=== PATIENT | male | born 1950 | race Caucasian/White ===

== ENCOUNTER 2023-07-08 06:53 | Outpatient (CLI) | payer MEDICARE, BC, SELFPAY | END 2023-07-08 06:54 | disposition home or self-care (01) | LOC: AMB 07-09 21:09 | PROVIDERS: PCP Family Medicine; Visit Provider Family Medicine | DX: R55 Syncope and collapse (principal) | CPT/HCPCS: A0425; A0427 ==

== ENCOUNTER 2023-07-08 07:18 | Emergency (ER) | payer MEDICARE, BC, SELFPAY ==
[2023-07-08] VITALS (7 sets, daily range): BP systolic 118–136; BP diastolic 54–63; PULSE 45–75; RESP 18; TEMP 36.4; O2SAT 98–100; BMI 29.4
--- NOTE | 2023-07-08 07:46 | ED_ITS ---
HPI - General Adult General Chief complaint: Dizziness/Vertigo <Mary Stevenson MD - Last Filed: 07/13/23 00:05> Stated complaint: Fall <Mary Stevenson MD - Last Filed: 07/13/23 00:05> Time Seen by Provider: 07/08/23 07:57 <Mary Stevenson MD - Last Filed: 07/13/23 00:05> Source: patient and EMS <Mary Stevenson MD - Last Filed: 07/13/23 00:05> Mode of arrival: EMS <Mary Stevenson MD - Last Filed: 07/13/23 00:05> History of Present Illness HPI narrative: 72-year-old male presents to the emergency department by EMS. He was working out at the [employer] this morning and had just completed a 20 minute exercise bike ride. He was starting to lift weights and suddenly felt generally weak and then felt lightheaded like he was going to pass out. He suddenly then did pass out, hitting his head on the wall he was standing next to on the way down. He does not believe that he lost consciousness. A woman there saw him fall and raced over to him, advised him not to get up. There was no seizure- like activity. Fall was clearly witnessed. There was no postictal or confusion following it. He notes no neurological changes. There was no vertigo type symptoms, no vision changes, no numbness or tingling. He had no speech difficulties. EMS was called. They noted hypotension in the 80s systolic on e scene. They brought him to the emergency department. He has a history of hypertension and an irregular heartbeat though he cannot remember if he was diagnosed with an arrhythmia or another type of rhythm problem. He states that he has had a heart rhythm problem for about a year and this was investigated by his enterprise manager out in [place]. From our discussions, it sounds like he had an echo and a Holter placed. He does not recall the results of those but was told that they were okay. He states that he was put on some kind of a medication but does not know specifically which 1. He reports that he is no longer taking that particular medication. He continues to take antihypertensives and his statin. He does not believe he had a stress test at that time. He did take his typical blood pressure medications prior to working out today as he usually does. Blood pressure was 120 is a this morning when he took his blood pressure at home prior to the workout. He did not have any chest pain, there was no shortness of breath. He has not noted an increase in irregular heart rate. No recent dizziness prior to this morning. No history of stents or coronary artery disease. He does not smoke. No history of DVT or PE. Past medical history notable for hypertension and hyperlipidemia and an irregular heartbeat of uncertain etiology. He is a nonsmoker, michelle in [place]. Medications and allergies reported as accurate. Lisinopril, statin, amlodipine, 3 prostate medications ROS notable for the dizziness and cardiac type report as above. Otherwise denies times 12 systems. <Mary Stevenson MD - Last Filed: 07/13/23 00:05> Related Data Allergies/adverse reactions: Allergies Allergy/AdvReac Type Severity Reaction Status Date / Time No Known Drug Allergies Allergy Verified 07/08/23 09:18 <Mary Stevenson MD - Last Filed: 07/13/23 00:05> [facility] Social History: Social History Non-prescribed substance use: denies use <Mary Stevenson MD - Last Filed: 07/13/23 00:05> Exam Const: Vital Signs, click to edit/add: Vital Signs - 24 hr 07/08/23 07:24 Temperature 97.5 F L Pulse Rate [Pulse Oximeter] 66 Respiratory Rate 18 Blood Pressure [Ri ght Upper Arm] 118/60 Pulse Oximetry 99 Oxygen Delivery Me thod Room Air <Mary Stevenson MD - Last Filed: 07/13/23 00:05> Vital Signs, click to edit/add: Vital Signs - 24 hr 07/08/23 07:24 Temperature 97.5 F L Pulse Rate [Pulse Oximeter] 66 Respiratory Rate 18 Blood Pressure [Ri ght Upper Arm] 118/60 Pulse Oximetry 99 Oxygen Delivery Me thod Room Air <Aftab Roman MD - Last Filed: 07/13/23 01:59> Documenting provider has reviewed patient's vital signs: yes <MD Lisa Gonzales Last Filed: 07/13/23 00:05> Common normals: no apparent distress and alert <MD Lisa Gonzales Last Filed: 07/13/23 00:05> General appearance: cooperative, comfortable and well kempt <MD Lisa Gonzales Last Filed: 07/13/23 00:05> Orientation/consciousness: Yes awake <MD Lisa Gonzales Last Filed: 07/13/23 00:05> Other: Fair historian. Cannot remember many of the details regarding his cardiac workup. <MD Lisa Gonzales Last Filed: 07/13/23 00:05> HENMT: Common normals: normocephalic and head/scalp atraumatic <MD Lisa Gonzales Last Filed: 07/13/23 00:05> Head and scalp: normocephalic and atraumatic <MD Lisa Gonzales Last Filed: 07/13/23 00:05> Face and sinus: normal facial exam <MD Lisa Gonzales Last Filed: 07/13/23 00:05> Mouth: oral and palatal mucosa normal <MD Lisa Gonzales Last Filed: 07/13/23 00:05> Throat: posterior oropharynx normal <MD Lisa Gonzales Last Filed: 07/13/23 00:05> Eye: Common normals: PERRL, EOMs intact bilaterally and conjunctivae normal <MD Lisa Gonzales Last Filed: 07/13/23 00:05> General eye: normal appearance of both eyes <MD Lisa Gonzales Last Filed: 07/13/23 00:05> Conjunctiva: conjunctiva(e) normal <MD Lisa Gonzales Last Filed: 07/13/23 00:05> Pupil: PERRL <MD Lisa Gonzales Last Filed: 07/13/23 00:05> Neck & C-Spine: Common normals: full ROM and no lymphadenopathy <MD Lisa Gonzales Last Filed: 07/13/23 00:05> Resp: Common normals: normal respiratory effort, no use of accessory muscles and clear to auscultation bilaterally <MD Lisa Gonzales Last Filed: 07/13/23 00:05> Effort & inspection: able to speak in complete sentences <MD Lisa Gonzales Last Filed: 07/13/23 00:05> Auscultation: clear to auscultation bilaterally <MD Lisa Gonzales Last Filed: 07/13/23 00:05> Cardio: Other: 2/6 systolic ejection murmur. Irregular . I listen and watch on the rhythm strip and it does look like frequent PVCs. Positive S1 and S2 with no gallops. Normal peripheral pulses. <MD Lisa Gonzales Last Filed: 07/13/23 00:05> GI: Common normals: Normal to inspection, nondistended, normoactive bowel sounds present, soft to palpation, non-tender, no hepatosplenomegaly and no masses <MD Lisa Gonzales Last Filed: 07/13/23 00:05> Palpation: soft and no hepatosplenomegaly <MD Lisa Gonzales Last Filed: 07/13/23 00:05> Extremity: Common normals: normal to inspection, full ROM, normal capillary refill and no pedal edema <MD Lisa Gonzales Last Filed: 07/13/23 00:05> Neuro: [place] Coma Scale: document GCS findings [place] coma scale eye opening: Spontaneous (4) [place] coma scale verbal response: Orientated (5) [place] coma scale motor response: Obey commands (6) [place] coma scale total s core: 15 <MD Lisa Gonzales Last Filed: 07/13/23 00:05> [place] Coma Scale: document GCS findings [place] coma scale total score: 15 <Aftab Roman MD - Last Filed: 07/13/23 01:59> Common normals: moves all extremities <MD Lisa Gonzales Last Filed: 07/13/23 00:05> Sensorium/orientation: awake and alert <MD Lisa Gonzales Last Filed: 07/13/23 00:05> Speech: speech normal <Mary Stevenson MD - Last Filed: 07/13/23 00:05> Motor exam: strength 5/5 throughout, no tremor noted, muscle tone normal throughout and no movement abnormalities noted <Mary Stevenson MD - Last Filed: 07/13/23 00:05> Psych: Common normals: thought process normal <Mary Stevenson MD - Last Filed: 07/13/23 00:05> Appearance: well kempt <Mary Stevenson MD - Last Filed: 07/13/23 00:05> Thought process: normal thought process <Mary Stevenson MD - Last Filed: 07/13/23 00:05> Insight: insight good <Mary Stevenson MD - Last Filed: 07/13/23 00:05> Judgement: judgment good <Mary Stevenson MD - Last Filed: 07/13/23 00:05> Skin: Common normals: no rashes or lesions noted <Mary Stevenson MD - Last Filed: 07/13/23 00:05> General skin exam: no rashes or lesions noted <Mary Stevenson MD - Last Filed: 07/13/23 00:05> Course Course ED Course: Hypotension noted by EMS. Suspect cardiogenic type syncope. Questioning arrhythmia, acute coronary syndrome, hypertension from his medications, sepsis, dehydration, or other etiology. Recommend basic cardiac labs, EKG, osteopathic physician, chest x-ray. No signs of significant head injury from the fall, do not suspect stroke or neurogenic cause. I will withhold head CT at this time. Will bolus 500 mL of normal saline while we await results. Will hand care over to my in coming day shift partner. <Mary Stevenson MD - Last Filed: 07/13/23 00:05> Reevaluation(s) Reevaluation #1: Care was handed over to incoming day shift partner. Remainder of labs have now been reviewed. Agree with management plan set forth by day shift partner. No abnormalities on labs that were ordered prior to my end of shift. See discharge plan. <Mary Stevenson MD - Last Filed: 07/13/23 00:05> Vital Signs Vital signs: Initial Vital Signs Temperature 97.5 F L 07/08/23 07:24 Temperature Source Temporal Artery Scan 07/08/23 07:24 Pulse Rate 66 07/08/23 07:24 Respiratory Rate 18 07/08/23 07:24 Blood Pressure 118/60 07/08/23 07:24 Blood Pressure Mean 79 07/08/23 07:24 Blood Pressure Position Sitting 07/08/23 07:24 Pulse Oximetry 99 07/08/23 07:24 Oxygen Delivery Method Room Air 07/08/23 07:24 Vital Signs Temperature 97.5 F L 07/08/23 07:24 Pulse Rate 66 07/08/23 07:24 Respiratory Rate 18 07/08/23 07:24 Blood Pressure 118/60 07/08/23 07:24 Pulse Oximetry 99 07/08/23 07:24 Oxygen Delivery Method Room Air 07/08/23 07:24 Temperature 97.5 F L 07/08/23 07:24 Pulse Rate 53 L 07/08/23 09:30 Respiratory Rate 18 07/08/23 07:24 Blood Pressure 136/63 07/08/23 09:04 Pulse Oximetry 99 07/08/23 09:30 Oxygen Delivery Method Room Air 07/08/23 07:24 <Mary Stevenson MD - Last Filed: 07/13/23 00:05> Initial Vital Signs Temperature 97.5 F L 07/08/23 07:24 Temperature Source Temporal Artery Scan 07/08/23 07:24 Pulse Rate 66 07/08/23 07:24 Respiratory Rate 18 07/08/23 07:24 Blood Pressure 118/60 07/08/23 07:24 Blood Pressure Mean 79 07/08/23 07:24 Blood Pressure Position Sitting 07/08/23 07:24 Pulse Oximetry 99 07/08/23 07:24 Oxygen Delivery Method Room Air 07/08/23 07:24 Vital Signs Temperature 97.5 F L 07/08/23 07:24 Pulse Rate 66 07/08/23 07:24 Respiratory Rate 18 07/08/23 07:24 Blood Pressure 118/60 07/08/23 07:24 Pulse Oximetry 99 07/08/23 07:24 Oxygen Delivery Method Room Air 07/08/23 07:24 Temperature 97.5 F L 07/08/23 07:24 Pulse Rate 53 L 07/08/23 09:30 Respiratory Rate 18 07/08/23 07:24 Blood Pressure 136/63 07/08/23 09:04 Pulse Oximetry 99 07/08/23 09:30 Oxygen Delivery Method Room Air 07/08/23 07:24 <Aftab Roman MD - Last Filed: 07/13/23 01:59> Medical Decision Making MDM Narrative Medical decision making narrative: Abel -- Received Mr. Allred in handoff at change of shift. Suspected episode of vasovagal near syncope pending repeat troponin; this was flat/0. EKG reviewed. He appeared quite well on re-evaluation with good energy. Continued to demonstrate bigeminy and occasional PVC, unifocal. See patient discharge plan <Aftab Roman MD - Last Filed: 07/13/23 01:59> Lab Data Lab results reviewed: Yes I reviewed the patient's lab results <Mary Stevenson MD - Last Filed: 07/13/23 00:05> Labs: Lab Results 07/08/23 07/08/23 07/08/23 Range/Units 07:29 07:43 09:00 WBC 5.02 (4.50-11.00) K/uL RBC 4.46 (4.30-5.90) m/uL Hgb 13.3 L (13.5-17.5) gm/dL Hct 40.8 (37.0-53.0) % MCV 92 (80-100) fL MCH 30 (26-34) pg MCHC 33 (32-36) gm/dL RDW Coeff of Nori 13.2 (11.5-15.5) % Plt Count 228 (140-440) K/uL Neut % (Auto) 66.5 (42.0-72.0) % Lymph % (Auto) 25.9 (20-44) % [place] % (Auto) 6.6 (0.0-11.0) % Eos % (Auto) 0.4 (0.0-7.0) % Baso % (Auto) 0.4 (0.0-3.0) % Neut # (Auto) 3.34 (1.7-7.0) K/uL Lymph # (Auto) 1.30 (0.90-2.90) K/uL [place] # (Auto) 0.30 (0.00-0.90) K/UL Eos # (Auto) 0.02 (0.00-0.50) K/uL Baso # (Auto) 0.02 (0.00-0.30) K/uL Abs Immat Gran (auto) 0.01 (0.00-0.30) K/uL Imm/Tot Granulo (auto) 0.2 % Sodium 138 (135-149) mmol/L Potassium 4.3 (3.6-5.1) mmol/L Chloride 106 (96-114) mmol/L Carbon Dioxide 21 (20-32) mmol/L Anion Gap 11 (7-15) mEq/L BUN 25 (7-30) mg/dL Creatinine 1.0 (0.5-1.5) mg/dL Estimated Creat Clear 55.09 Estimated GFR 79 ml/min Glucose 100 (60-115) mg/dL Calcium 11.2 H (8.4-10.6) mg/dL Troponin I < 0.01 L (0.01-0.04) ng/mL C-Reactive Protein < 0.5 L (0.5-1.0) mg/dL NT-Pro-B Natriuret Pep 90 pg/mL Urine Color Yellow (Yellow) Urine Appearance Clear (Clear) Urine pH 6.0 (5.0-8.5) Ur Specific [place] 1.020 (1.000-1.030) Urine Protein Negative (Negative) Urine Glucose (UA) Negative (Negative) Urine Ketones Negative (Negative) Urine Blood Negative (Negative) Urine Nitrite Negative (Negative) Urine Bilirubin Negative (Negative) Urine Urobilinogen 0.2 (0.2-1.0) Ur Leukocyte Esterase Negative (Negative) POC Troponin I 0.00 L (0.01-0.04) ng/ml 07/08/23 Range/Units 09:14 WBC (4.50-11.00) K/uL RBC (4.30-5.90) m/uL Hgb (13.5-17.5) gm/dL Hct (37.0-53.0) % MCV (80-100) fL MCH (26-34) pg MCHC (32-36) gm/dL RDW Coeff of Nori (11.5-15.5) % Plt Count (140-440) K/uL Neut % (Auto) (42.0-72.0) % Lymph % (Auto) (20-44) % [place] % (Auto) (0.0-11.0) % Eos % (Auto) (0.0-7.0) % Baso % (Auto) (0.0-3.0) % Neut # (Auto) (1.7-7.0) K/uL Lymph # (Auto) (0.90-2.90) K/uL [place] # (Auto) (0.00-0.90) K/UL Eos # (Auto) (0.00-0.50) K/uL Baso # (Auto) (0.00-0.30) K/uL Abs Immat Gran (auto) (0.00-0.30) K/uL Imm/Tot Granulo (auto) % Sodium (135-149) mmol/L Potassium (3.6-5.1) mmol/L Chloride (96-114) mmol/L Carbon Dioxide (20-32) mmol/L Anion Gap (7-15) mEq/L BUN (7-30) mg/dL Creatinine (0.5-1.5) mg/dL Estimated Creat Clear Estimated GFR ml/min Glucose (60-115) mg/dL Calcium (8.4-10.6) mg/dL Troponin I (0.01-0.04) ng/mL C-Reactive Protein (0.5-1.0) mg/dL NT-Pro-B Natriuret Pep pg/mL Urine Color (Yellow) Urine Appearance (Clear) Urine pH (5.0-8.5) Ur Specific [place] (1.000-1.030) Urine Protein (Negative) Urine Glucose (UA) (Negative) Urine Ketones (Negative) Urine Blood (Negative) Urine Nitrite (Negative) Urine Bilirubin (Negative) Urine Urobilinogen (0.2-1.0) Ur Leukocyte Esterase (Negative) POC Troponin I 0.00 L (0.01-0.04) ng/ml <Mary Stevenson MD - Last Filed: 07/13/23 00:05> Lab Results 07/08/23 07/08/23 07/08/23 Range/Units 07:29 07:43 09:00 WBC 5.02 (4.50-11.00) K/uL RBC 4.46 (4.30-5.90) m/uL Hgb 13.3 L (13.5-17.5) gm/dL Hct 40.8 (37.0-53.0) % MCV 92 (80-100) fL MCH 30 (26-34) pg MCHC 33 (32-36) gm/dL RDW Coeff of Nori 13.2 (11.5-15.5) % Plt Count 228 (140-440) K/uL Neut % (Auto) 66.5 (42.0-72.0) % Lymph % (Auto) 25.9 (20-44) % [place] % (Auto) 6.6 (0.0-11.0) % Eos % (Auto) 0.4 (0.0-7.0) % Baso % (Auto) 0.4 (0.0-3.0) % Neut # (Auto) 3.34 (1.7-7.0) K/uL Lymph # (Auto) 1.30 (0.90-2.90) K/uL [place] # (Auto) 0.30 (0.00-0.90) K/UL Eos # (Auto) 0.02 (0.00-0.50) K/uL Baso # (Auto) 0.02 (0.00-0.30) K/uL Abs Immat Gran (auto) 0.01 (0.00-0.30) K/uL Imm/Tot Granulo (auto) 0.2 % Sodium 138 (135-149) mmol/L Potassium 4.3 (3.6-5.1) mmol/L Chloride 106 (96-114) mmol/L Carbon Dioxide 21 (20-32) mmol/L Anion Gap 11 (7-15) mEq/L BUN 25 (7-30) mg/dL Creatinine 1.0 (0.5-1.5) mg/dL Estimated Creat Clear 55.09 Estimated GFR 79 ml/min Glucose 100 (60-115) mg/dL Calcium 11.2 H (8.4-10.6) mg/dL Troponin I < 0.01 L (0.01-0.04) ng/mL C-Reactive Protein < 0.5 L (0.5-1.0) mg/dL NT-Pro-B Natriuret Pep 90 pg/mL Urine Color Yellow (Yellow) Urine Appearance Clear (Clear) Urine pH 6.0 (5.0-8.5) Ur Specific [place] 1.020 (1.000-1.030) Urine Protein Negative (Negative) Urine Glucose (UA) Negative (Negative) Urine Ketones Negative (Negative) Urine Blood Negative (Negative) Urine Nitrite Negative (Negative) Urine Bilirubin Negative (Negative) Urine Urobilinogen 0.2 (0.2-1.0) Ur Leukocyte Esterase Negative (Negative) POC Troponin I 0.00 L (0.01-0.04) ng/ml 07/08/23 Range/Units 09:14 WBC (4.50-11.00) K/uL RBC (4.30-5.90) m/uL Hgb (13.5-17.5) gm/dL Hct (37.0-53.0) % MCV (80-100) fL MCH (26-34) pg MCHC (32-36) gm/dL RDW Coeff of Nori (11.5-15.5) % Plt Count (140-440) K/uL Neut % (Auto) (42.0-72.0) % Lymph % (Auto) (20-44) % [place] % (Auto) (0.0-11.0) % Eos % (Auto) (0.0-7.0) % Baso % (Auto) (0.0-3.0) % Neut # (Auto) (1.7-7.0) K/uL Lymph # (Auto) (0.90-2.90) K/uL [place] # (Auto) (0.00-0.90) K/UL Eos # (Auto) (0.00-0.50) K/uL Baso # (Auto) (0.00-0.30) K/uL Abs Immat Gran (auto) (0.00-0.30) K/uL Imm/Tot Granulo (auto) % Sodium (135-149) mmol/L Potassium (3.6-5.1) mmol/L Chloride (96-114) mmol/L Carbon Dioxide (20-32) mmol/L Anion Gap (7-15) mEq/L BUN (7-30) mg/dL Creatinine (0.5-1.5) mg/dL Estimated Creat Clear Estimated GFR ml/min Glucose (60-115) mg/dL Calcium (8.4-10.6) mg/dL Troponin I (0.01-0.04) ng/mL C-Reactive Protein (0.5-1.0) mg/dL NT-Pro-B Natriuret Pep pg/mL Urine Color (Yellow) Urine Appearance (Clear) Urine pH (5.0-8.5) Ur Specific [place] (1.000-1.030) Urine Protein (Negative) Urine Glucose (UA) (Negative) Urine Ketones (Negative) Urine Blood (Negative) Urine Nitrite (Negative) Urine Bilirubin (Negative) Urine Urobilinogen (0.2-1.0) Ur Leukocyte Esterase (Negative) POC Troponin I 0.00 L (0.01-0.04) ng/ml <Aftab Roman MD - Last Filed: 07/13/23 01:59> ECG Data Attestation: I personally reviewed and interpreted this ECG as follows: <Mary Stevenson MD - Last Filed: 07/13/23 00:05> Prior ECG tracings: not available for review <Mary Stevenson MD - Last Filed: 07/13/23 00:05> Interpretation: Overall sinus rhythm with irregular pattern. No obvious ischemia. No significant ST or T-wave abnormalities. Normal axis. <Mary Stevenson MD - Last Filed: 07/13/23 00:05> Discharge Plan Discharge Clinical Impression: Syncope, vasovagal, Bigeminy, Unifocal PVCs <Mary Stevenson MD - Last Filed: 07/13/23 00:05> Patient Disposition: Home w/ Parent or Adult <Mary Stevenson MD - Last Filed: 07/13/23 00:05> Condition: Improved <Mary Stevenson MD - Last Filed: 07/13/23 00:05> Additional Instructions: Be sure to stay well-hydrated. Would consider taking your morning pills after your workout. Might want to check in again with your primary care provider or with Cardiology regarding events of today. Return for persistent, increased lightheadedness, shortness of breath, chest pain. <Mary Stevenson MD - Last Filed: 07/13/23 00:05> Follow Up/Referrals: Chalo Kidd MD [Primary Care Provider] - <Mary Stevenson MD - Last Filed: 07/13/23 00:05> Stand Alone Forms: [facility] <Mary Stevenson MD - Last Filed: 07/13/23 00:05>
--- NOTE | 2023-07-08 07:49 | CRLHL7_ITS ---
For Patients: As a result of the Cures Act, medical imaging exams and procedure reports are released immediately into your electronic medical record. You may view this report before your referring provider. If you have questions, please contact your health care provider. INDICATION: Syncope. TECHNIQUE: Chest 2 views. COMPARISON: None. FINDINGS: The patient is rotated rightward. Heart and mediastinum: Within normal limits for age. Lungs and pleural spaces: Lungs are clear. No sign of infiltrate or mass. No sign of pleural effusion. No pneumothorax. Bones and soft tissues: No significant findings. IMPRESSION: No acute findings. Dictated by Ming Oshea MD @ 07/08/2023 8:18:07 AM (Electronically Signed)
[2023-07-08 07:50] LABS: Basophils Absolute Auto 0.02 K/uL (0.00-0.30); Basophils Percent Auto 0.4 % (0.0-3.0); Eosinophils Absolute Auto 0.02 K/uL (0.00-0.50); Eosinophils Percent Auto 0.4 % (0.0-7.0); Hematocrit 40.8 % (37.0-53.0); Hemoglobin* 13.3 gm/dL (13.5-17.5); Immature Granulocytes Abs Auto 0.01 K/uL (0.00-0.30); Immature Granulocytes Pct Auto 0.2 %; Lymphocytes Percent Auto 25.9 % (20-44); Mean Corpuscular HGB Conc 33 gm/dL (32-36); Mean Corpuscular Hemoglobin 30 pg (26-34); Mean Corpuscular Volume 92 fL (80-100); Monocytes Percent Auto 6.6 % (0.0-11.0); Neutrophils Absolute Auto 3.34 K/uL (1.7-7.0); Neutrophils Percent Auto 66.5 % (42.0-72.0); Platelet Count* 228 K/uL (140-440); RDW Coefficient of Variation % 13.2 % (11.5-15.5); Red Blood Count 4.46 m/uL (4.30-5.90); White Blood Count* 5.02 K/uL (4.50-11.00)
[2023-07-08 07:58] LABS: Slide Review Reflex No
[2023-07-08] MEDS: 0.9 % SODIUM CHLORIDE 500 ML 500 ML IV (07:58)
[2023-07-08 08:02] LABS: Chloride* 106 mmol/L (96-114)
[2023-07-08 08:03] LABS: Potassium* 4.3 mmol/L (3.6-5.1); Sodium* 138 mmol/L (135-149)
[2023-07-08 08:05] LABS: Est. Creatinine Clearance* 55.09; Estimated Glomerular Filt Rate 79 ml/min
[2023-07-08 08:06] LABS: Anion Gap 11 mEq/L (7-15); Blood Urea Nitrogen* 25 mg/dL (7-30); Calcium* 11.2 mg/dL (8.4-10.6); Carbon Dioxide* 21 mmol/L (20-32); Glucose* 100 mg/dL (60-115)
[2023-07-08 08:14] LABS: C Reactive Protein* < 0.5 mg/dL (0.5-1.0)
[2023-07-08 08:18] LABS: NT Pro B Type NatriureticPept* 90 pg/mL; Troponin I* < 0.01 ng/mL (0.01-0.04)
[2023-07-08 09:07] LABS: Appearance Urine Clear (Clear); Bilirubin Urine Negative (Negative); Blood Urine Negative (Negative); Color Urine Yellow (Yellow); Glucose Urine Negative (Negative); Ketones Urine Negative (Negative); Leukocyte Esterase Urine Negative (Negative); Nitrite Urine Negative (Negative); Protein Urine Negative (Negative); Urobilinogen Urine 0.2 (0.2-1.0)
== END 2023-07-08 10:50 | disposition home or self-care (01) ==
PROVIDERS: Family Medicine; Emergency Provider Family Medicine; PCP Family Medicine
DX: R55 Syncope and collapse (principal); R00.8 Other abnormalities of heart beat; I49.3 Ventricular premature depolarization
CPT/HCPCS: 36415; 71046; 80048; 81003; 83880; 84484; 85025; 86140; 93005; 96360; 99284; 99285; J7120

== ENCOUNTER 2024-05-15 05:17 | Emergency (ER) | payer MEDICARE, BC, SELFPAY ==
[2024-05-15 05:24] VITALS: BP 131/70; PULSE 76; RESP 16; TEMP 36.4; O2SAT 98; BMI 27.5
--- NOTE | 2024-05-15 05:51 | ED.GENADULT ---
HPI - General Adult General Chief complaint: Dizziness/Vertigo Stated complaint: lightheaded,dizzy Time Seen by Provider: 05/15/24 05:30 Source: patient Mode of arrival: ambulatory Limitations: no limitations History of Present Illness HPI narrative: 73-year-old male with prior history of hypertension presents the emergency department for evaluation of lightheadedness. Asymptomatic last night when he went to bed, awoke at 4:00 a.m. which is his typical wake time and went to go to the bathroom. He said that he felt lightheaded like he could faint. There was no vertigo or neurological change noted. No vision change or difficulty moving his extremities. He was worried that he would pass out so he sat down on the floor and noticed that his symptoms did improve quite a bit after about 5 minutes. He was unable to get up and walk into the kitchen where he still felt somewhat lightheaded. He had a cup of coffee and drink a big glass of water hoping that this would help. He says that he still felt just a little off therefore he presents to the emergency department. No chest pain, no shortness of breath, no feelings of arrhythmia. He had a syncopal episode about 1 year ago and was evaluated in the ED. It looks like I saw him then. Ultimately, his symptoms were thought to be secondary to dehydration. He did follow-up with cardiology as was recommended. It looks like he had a a Myoview stress test in July of 2023. This showed an EF of 73% with no ischemia, wall motion abnormalities or prior infarcts. I also reviewed that he last followed up with his straightening press operator 1 week ago. This note is reviewed. At that time, patient's lisinopril was increased from 10 mg once daily to 20 mg once daily. Patient states he has not picked up the increased dose and started it yet. Patient has been off of his Flomax for about 10 to 14 days following a urological procedure. He did just restart the medication last night and wonders if this could be contributing. No prior history of strokes or coronary artery disease, he is a nonsmoker. No recent illness, fevers. No respiratory changes, abdominal pain, dysuria, GI bleed or leg swelling. Other than the Flomax change, no other changes in medications or habits. Does report that he is still mildly symptomatic while laying down here in the ED. Past medical history notable for hypertension, BPH, urethral stricture and the prior syncope workup. Surgical history notable for total knee replacement. Nonsmoker. ROS notable for the generalized symptoms as described above only, otherwise denies times 12 systems. Related Data Home Medications ?Medication ?Instructions ?Recorded ?Confirmed amlodipine 5 mg PO DAILY 05/15/24 05/15/24 atorvastatin 40 mg PO HS 05/15/24 05/15/24 finasteride 5 mg PO DAILY 05/15/24 05/15/24 lisinopril 10 mg PO DAILY 05/15/24 05/15/24 tamsulosin 0.4 mg capsule (Flomax) 0.4 mg PO DAILY 05/15/24 05/15/24 Allergies Allergy/AdvReac Type Severity Reaction Status Date / Time No Known Drug Allergies Allergy Verified 05/15/24 05:26 [facility] Medical History BPH (benign prostatic hyperplasia) ?N40.0 - Benign prostatic hyperplasia without lower urinary tract symptoms (ICD-10) Syncope, vasovagal ?R55 - Syncope and collapse (ICD-10) Stricture of male urethra ?N35.919 - Unspecified urethral stricture, male, unspecified site (ICD-10) Adenomatous colon polyp ?D12.6 - Benign neoplasm of colon, unspecified (ICD-10) Seborrheic keratosis ?L82.1 - Other seborrheic keratosis (ICD-10) Hypercalcemia ?E83.52 - Hypercalcemia (ICD-10) Unifocal PVCs ?I49.3 - Ventricular premature depolarization (ICD-10) Bigeminy ?I49.8 - Other specified cardiac arrhythmias (ICD-10) Essential hypertension ?I10 - Essential (primary) hypertension (ICD-10) Surgical History History of total left knee replacement ?Z96.652 - Presence of left artificial knee joint (ICD-10) Social History Smoking Status: Never smoker How often do you have a drink containing alcohol: never AUDIT-C Alcohol total score: 0 Non-prescribed substance use: denies use Exam Const: Vital Signs, click to edit/add: Vital Signs - 24 hr 05/15/24 05:24 05/15/24 06:01 Temperature 97.6 F Pulse Rate [Pulse Oximeter] 76 Pulse Rate [orthos tatic lying] 75 Pulse Rate [orthos tatic sitting] 65 Pulse Rate [orthos tatic standing] 72 Respiratory Rate 16 Blood Pressure [Le ft Upper Arm] 131/70 Blood Pressure [or thostatic lying] 145/71 H Blood Pressure [or thostatic sitting] 142/75 H Blood Pressure [or thostatic standing ] 122/62 Pulse Oximetry 98 Oxygen Delivery Me thod Room Air Documenting provider has reviewed patient's vital signs: yes Common normals: no apparent distress, oriented x3 and alert General appearance: well kempt Other: Slightly masked facies appearance. Some mild memory lapse when recalling history, he states that this has been happening a little more often lately but is not unique to today. Appears well nourished and well hydrated. HENMT: Common normals: normocephalic and oropharynx normal Head and scalp: normocephalic Mouth: oral and palatal mucosa normal Throat: posterior oropharynx normal Eye: Common normals: PERRL and EOMs intact bilaterally Pupil: PERRL Other: Mild ocular ptosis Neck & C-Spine: Common normals: no lymphadenopathy General: normal visual inspection Chest: Common normals: inspection of chest normal Resp: Common normals: normal respiratory effort, no use of accessory muscles and clear to auscultation bilaterally Effort & inspection: able to speak in complete sentences Auscultation: clear to auscultation bilaterally Cardio: Common normals: regular rate, regular rhythm, S1 normal heart sound, S2 normal heart sound and no murmurs Rate: regular rate Rhythm: regular rhythm Heart sounds: S1 normal and S2 normal GI: Common normals: Normal to inspection, nondistended, normoactive bowel sounds present, soft to palpation, non-tender, no hepatosplenomegaly and no masses Palpation: soft and no hepatosplenomegaly Back & Pelvis: Common normals: thoracic and lumbar spine normal to inspection Extremity: Common normals: normal to inspection, normal capillary refill and no pedal edema Neuro: Common normals: oriented x3, CN's II-XII intact bilaterally, moves all extremities, no focal motor deficits and no sensory deficits noted Sensorium/orientation: alert Speech: speech normal Gait (neuro): normal gait Motor exam: strength 5/5 throughout and no pronator drift Psych: Common normals: thought process normal Appearance: well kempt Attitude: engaged Activity/motor behavior: appropriate eye contact Mood and affect: euthymic mood Thought process: normal thought process Memory/cognition: memory grossly intact Insight: insight good Judgement: judgment good Skin: Common normals: no rashes or lesions noted General skin exam: no rashes or lesions noted Course Course ED Course: 69 for a male with lightheadedness, may correlate with restart of her Flomax though he has been evaluated for similar symptoms of syncope in the ED in the past. Normal cardiac stress test 9 months ago. Initial vital signs appear stable. No neurological features to suggest stroke though cannot fully exclude. Initial exam is quite reassuring. Will begin with 1 L of normal saline, orthostatics, typical cardiac, electrolyte workup. Differential diagnosis including stroke, medication side effect, cardiac process, arrhythmia, acute coronary syndrome, dehydration, among many others. I am wondering if he is developing some autonomic instability with blood pressure. He does have some masked face ease which are curious as well. Await workup in findings from ED but may also benefit from a tilt-table test or other assessment for autonomic dysfunction at this is nonrevealing. Update: Orthostatic blood pressures reviewed and does meet criteria for orthostatic hypotension. Reevaluation(s) Time of Reevaluation #1: 08:14 Reevaluation #1: Patient feeling better after fluids and orthostatic blood pressures improved after fluids as well. Is drinking fluids here without complication and now has been able to urinate. Dizziness has improved. Repeat troponin is also again negative, this is reassuring. Discussed dehydration, do suspect some underlying autonomic dysfunction and amplification of symptoms with his current medications. I would like him to switch his Flomax to morning, specifically after breakfast and after he has consume some fluids. Especially in these very hot months, I would like for him to try to drink a little more fluid throughout the evenings. We discussed potentially referral for tilt-table testing and/or cardiology follow-up if his symptoms persist. Discussed that it does not really change the outcome it just gives more evidence to the etiology of his symptoms. He will consider this. He will continue monitoring his blood pressures closely and follow-up with his primary care provider if he has persistent symptoms. I would like for him to hold off on his increased dose of lisinopril for another week and monitor his blood pressures at home closely prior to increasing this. His blood pressure may have been a little higher in the office with the straightening press operator as he would have been off of his Flomax during that time. He verbalizes understanding and agreement of plan. Vital Signs Vital signs: Initial Vital Signs Temperature 97.6 F 05/15/24 05:24 Temperature Source Temporal Artery Scan 05/15/24 05:24 Pulse Rate 76 05/15/24 05:24 Respiratory Rate 16 05/15/24 05:24 Blood Pressure 131/70 05/15/24 05:24 Blood Pressure Mean 90 05/15/24 05:24 Blood Pressure Position Sitting 05/15/24 05:24 Pulse Oximetry 98 05/15/24 05:24 Oxygen Delivery Method Room Air 05/15/24 05:24 Vital Signs Temperature 97.6 F 05/15/24 05:24 Pulse Rate 76 05/15/24 05:24 Respiratory Rate 16 05/15/24 05:24 Blood Pressure 131/70 05/15/24 05:24 Pulse Oximetry 98 05/15/24 05:24 Oxygen Delivery Method Room Air 05/15/24 05:24 Temperature 97.6 F 05/15/24 05:24 Pulse Rate 75 05/15/24 06:01 Respiratory Rate 16 05/15/24 05:24 Blood Pressure 145/71 H 05/15/24 06:01 Pulse Oximetry 98 05/15/24 05:24 Oxygen Delivery Method Room Air 05/15/24 05:24 Medical Decision Making Lab Data Labs: Lab Results 05/15/24 05/15/24 05/15/24 Range/Units 05:46 05:48 06:23 WBC 5.14 (4.50-11.00) K/uL RBC 4.69 (4.30-5.90) m/uL Hgb 13.8 (13.5-17.5) gm/dL Hct 42.4 (37.0-53.0) % MCV 90 (80-100) fL MCH 29 (26-34) pg MCHC 33 (32-36) gm/dL RDW Coeff of Nori 13.0 (11.5-15.5) % Plt Count 204 (140-440) K/uL Neut % (Auto) 55.1 (42.0-72.0) % Lymph % (Auto) 34.2 (20-44) % [place] % (Auto) 9.3 (0.0-11.0) % Eos % (Auto) 0.6 (0.0-7.0) % Baso % (Auto) 0.6 (0.0-3.0) % Neut # (Auto) 2.83 (1.7-7.0) K/uL Lymph # (Auto) 1.76 (0.90-2.90) K/uL [place] # (Auto) 0.50 (0.00-0.90) K/UL Eos # (Auto) 0.03 (0.00-0.50) K/uL Baso # (Auto) 0.03 (0.00-0.30) K/uL Abs Immat Gran (auto) 0.01 (0.00-0.30) K/uL Imm/Tot Granulo (auto) 0.2 % Sodium 134 L (135-149) mmol/L Potassium 4.0 (3.6-5.1) mmol/L Chloride 106 (96-114) mmol/L Carbon Dioxide 19 L (20-32) mmol/L Anion Gap 9 (7-15) mEq/L BUN 20 (7-30) mg/dL Creatinine 0.9 (0.5-1.5) mg/dL Estimated Creat Clear 54.27 Estimated GFR 90 ml/min Glucose 114 (60-115) mg/dL Lactate 2.3 H (0.5-1.9) mmol/L Calcium 10.5 (8.4-10.6) mg/dL Total Bilirubin 1.2 (0.1-1.5) mg/dL AST 34 (12-35) U/L ALT 26 (4-50) U/L Alkaline Phosphatase 68 (40-150) U/L C-Reactive Protein < 0.5 L (0.5-1.0) mg/dL Total Protein 6.7 (6.0-8.3) g/dL Albumin 4.3 (3.3-5.0) g/dL TSH 3.900 (0.270-4.200) uIU/mL Urine Color (Yellow) Urine Appearance (Clear) Urine pH (5.0-8.5) Ur Specific [place] (1.000-1.030) Urine Protein (Negative) Urine Glucose (UA) (Negative) Urine Ketones (Negative) Urine Blood (Negative) Urine Nitrite (Negative) Urine Bilirubin (Negative) Urine Urobilinogen (0.2-1.0) Ur Leukocyte Esterase (Negative) SARS-CoV-2 (PCR) Negative SARS-CoV-2 (Negative) Influenza Type A (PCR) Negative PCR FLU A (Negative) Influenza Type B (PCR) Negative PCR FLU B (Negative) RSV (PCR) Negative PCR RSV (Negative) POC Troponin I 0.01 (0.01-0.04) ng/ml 05/15/24 05/15/24 Range/Units 07:40 08:02 WBC (4.50-11.00) K/uL RBC (4.30-5.90) m/uL Hgb (13.5-17.5) gm/dL Hct (37.0-53.0) % MCV (80-100) fL MCH (26-34) pg MCHC (32-36) gm/dL RDW Coeff of Nori (11.5-15.5) % Plt Count (140-440) K/uL Neut % (Auto) (42.0-72.0) % Lymph % (Auto) (20-44) % [place] % (Auto) (0.0-11.0) % Eos % (Auto) (0.0-7.0) % Baso % (Auto) (0.0-3.0) % Neut # (Auto) (1.7-7.0) K/uL Lymph # (Auto) (0.90-2.90) K/uL [place] # (Auto) (0.00-0.90) K/UL Eos # (Auto) (0.00-0.50) K/uL Baso # (Auto) (0.00-0.30) K/uL Abs Immat Gran (auto) (0.00-0.30) K/uL Imm/Tot Granulo (auto) % Sodium (135-149) mmol/L Potassium (3.6-5.1) mmol/L Chloride (96-114) mmol/L Carbon Dioxide (20-32) mmol/L Anion Gap (7-15) mEq/L BUN (7-30) mg/dL Creatinine (0.5-1.5) mg/dL Estimated Creat Clear Estimated GFR ml/min Glucose (60-115) mg/dL Lactate (0.5-1.9) mmol/L Calcium (8.4-10.6) mg/dL Total Bilirubin (0.1-1.5) mg/dL AST (12-35) U/L ALT (4-50) U/L Alkaline Phosphatase (40-150) U/L C-Reactive Protein (0.5-1.0) mg/dL Total Protein (6.0-8.3) g/dL Albumin (3.3-5.0) g/dL TSH (0.270-4.200) uIU/mL Urine Color Yellow (Yellow) Urine Appearance Clear (Clear) Urine pH 5.5 (5.0-8.5) Ur Specific [place] 1.015 (1.000-1.030) Urine Protein Negative (Negative) Urine Glucose (UA) Negative (Negative) Urine Ketones Negative (Negative) Urine Blood Negative (Negative) Urine Nitrite Negative (Negative) Urine Bilirubin Negative (Negative) Urine Urobilinogen 0.2 (0.2-1.0) Ur Leukocyte Esterase Negative (Negative) SARS-CoV-2 (PCR) (Negative) Influenza Type A (PCR) (Negative) Influenza Type B (PCR) (Negative) RSV (PCR) (Negative) POC Troponin I 0.00 L (0.01-0.04) ng/ml ECG Data Attestation: I personally reviewed and interpreted this ECG as follows: Prior ECG tracings: available for review (2022) Interpretation: Sinus rhythm as there are P-waves for every QRS but rate is a little irregular. Ranges in the high 70s. NE interval seems pretty preserved but there does seem to be irregularly length pauses at times between T and P waves. But ST segments look normal. [place] and interval look normal. No findings consistent with acute ischemia. Overall, looks unchanged from July 2023 Discharge Plan Discharge Clinical Impression: Postural dizziness with presyncope, Orthostatic hypotension, Dehydration Patient Disposition: Home, Self-Care Condition: Improved Instructions: Lightheadedness (ED), Tilt Table Test (DC) Additional Instructions: As we discussed, your dizziness was related to multiple factors. First, you were slightly dehydrated. I am glad that your symptoms are improving after the IV fluids. Second, I think that the nerves within your blood vessels are not as reactive as they were when you are younger, making you more prone to this type of dizziness when you get dehydrated or change positions. Third, your lisinopril and Flomax are 2 medications that will certainly amplify these symptoms in susceptible people. At this time, I think it is safe for you to continue your medications as are currently prescribed, but I would like to switch your Flomax to morning rather than bedtime. Would like for you to wait to start the increased dose of lisinopril for another week and monitor your blood pressure twice daily. If your blood pressures are still running over 135 systolic, you should take the increased dose of lisinopril. Your blood pressure may have been a little higher in the straightening press operator's office as I think you would have been off of your Flomax at the time of that visit. Try to take your Flomax after you have had some fluid and breakfast. Follow-up with your primary care provider if your blood pressures are still not at goal. As we discussed, there is specific testing that can look more closely at this, called a tilt-table test. Ultimately though, it does not really change management consultant or give us additional treatment options. For now, make sure you are drinking plenty of fluids throughout the day, especially on these hot days. If you start to feel dizzy or lightheaded, rest and drink lots of fluids like you did this morning and symptoms should improve within a couple of hours. Check your blood pressure and also your pulse and if these are within a reasonable range, you do not need to immediately come to the ED but if things do not improve after fluids and a couple of hours, we would certainly want for you to come in. If you continue to have these symptoms, I would recommend you follow-up with her straightening press operator to discuss medication changes or additional testing such as a Holter monitor, tilt-table test or others. Activity Level: No Restrictions Discharge Diet: Regular Prescriptions: No Action tamsulosin [Flomax] 0.4 mg capsule 0.4 mg PO DAILY lisinopril 10 mg PO DAILY atorvastatin 40 mg PO HS finasteride 5 mg PO DAILY amlodipine 5 mg PO DAILY Follow Up/Referrals: Chalo Kidd MD [Primary Care Provider] - Stand Alone Forms: [employer] Info Instructions
--- OUTSIDE RECORDS SUMMARY | 2024-05-15 05:54 | XMS_ITS | Clinical Summary ---
Author Organization [employer] & [facility] Address [place], [place] [address] Care Team Providers Care Manager Regulatory Name Role Phone Chalo Kidd MD Primary Care Provider [phone]- [phone] Allergies No known active allergies Medications Medication Sig Dispensed Refills Start Date End Date Status cholecalciferol (VITAMIN D-3) 2,000 unit capsule Take 1 capsule by mouth once daily. 0 09/19/20 13 Active ubidecarenone (coenzyme Q10) 100 mg tab Take 1 Tablet by mouth once daily. 0 07/06/20 22 Active vibegron (Gemtesa) 75 mg tablet Take 75 mg by mouth once daily. Active amLODIPine (NORVASC) 5 mg tablet Take 1 Tablet by mouth once daily. 02/12/20 23 Active finasteride (PROSCAR) 5 mg tabletIndications:Benign prostatic hyperplasia with nocturia TAKE 1 TABLET BY MOUTH EVERY MORNING 90 Tablet 2 04/28/20 24 Active atorvastatin (LIPITOR) 40 mg tabletIndications:Pure hypercholesterolemia TAKE 1 TABLET BY MOUTH AT BEDTIME 90 Tablet 2 04/28/20 24 Active tamsulosin (Flomax) 0.4 mg capsuleIndications:Benig n prostatic hyperplasia with urinary frequency Take 1 Capsule (0.4 mg) by mouth once daily after a meal. 05/08/20 24 Active lisinopriL (PRINIVIL; ZESTRIL) 10 mg tabletIndications:Essent ial hypertension Take 1 Tablet (10 mg) by mouth once daily. 90 Tablet 4 05/08/20 24 Active atorvastatin (LIPITOR) 40 mg tabletIndications:Pure hypercholesterolemia Take 1 Tablet (40 mg) by mouth at bedtime. 90 Tablet 1 11/14/19 24 024 Discontinued finasteride (PROSCAR) 5 mg tabletIndications:Benign prostatic hyperplasia with nocturia Take 1 Tablet (5 mg) by mouth every morning. 90 Tablet 1 11/14/19 24 024 Discontinued tamsulosin (Flomax) 0.4 mg capsuleIndications:Benig n prostatic hyperplasia with urinary frequency Take 1 Capsule (0.4 mg) by mouth once daily after a meal. 90 Capsule 1 11/14/19 24 024 Discontinued(*M edication adjustment) lisinopriL (PRINIVIL; ZESTRIL) 5 mg tabletIndications:Essent ial hypertension Take 1 Tablet (5 mg) by mouth once daily. In morning 02/17/20 24 024 Discontinued(*M edication adjustment) lisinopriL (PRINIVIL; ZESTRIL) 5 mg tabletIndications:Essent ial hypertension Take 0.5 Tablets (2.5 mg) by mouth two times daily. In morning 05/08/20 24 024 Discontinued(*M edication adjustment) Active Problems Problem Noted Date Diagnosed Date Stricture of male urethra 04/06/2024 Unifocal PVCs 03/22/2024 Syncope, vasovagal 03/22/2024 Bigeminy 03/22/2024 Poor intravenous access 05/26/2023 Hypercalcemia 02/19/2023 Overview: January 2023: calcium 10.7. Benign prostatic hyperplasia with nocturia 02/27 Adenomatous colon polyp 02/24/2018 Overview: Colonoscopy 01/2018 polyps, repeat in 5 years Colonoscopy 04/2023 TA, repeat in 7 years Urinary frequency 03/30/2017 Essential hypertension 02/16/2017 Seborrheic keratosis 03/17/2016 Overview: Left side of neck measures 7 by 5 mm mostly flesh colored with an area of brown pigment on lateral side. Status post total left knee replacement 07/09/20 15 Vitamin D deficiency 09/19/2013 Special screening for malignant neoplasm of pros zamora 04/23/2008 Pure hypercholesterolemia 04/07/2007 Resolved Problems Problem Noted Date Diagnosed Date Resolved Date HTN (hypertension) 08/27/2015 7 Nonspecific elevation of lev els of transaminase or lactic acid dehydrogenase (LDH) 02/15/2007 08/19/2010 Encounters Date Type Department Care Team Description 05/08/2024 2:00 PM CDT Office Visit [facility] [address] [facility] [address] [place] [address] Chalo Trent MD Follow Up (Annual F/U/Recent EKG 03/22/PT states feeling fine./No cardiac symptoms. ) 05/08/2024 Travel 05/02/2024 Orders Only [facility] Scanner 1 scan: (1-Ord) [facility], URETHRAL STRICTURE, 05/02/2024 04/26/2024 Refill [facility] [address] [place] [address] Chalo Kidd MD Refill Request (Finasteride, Atorvastatin) 04/09/2024 Patient Outreach [facility] [address] [place] [address] Yudith Camacho, BUNNY Primary RN Care Management; Hospital F/U (LACE /) 04/05/2024 9:52 AM CDT Anesthesia Event [facility] [address] [place] [address] Ja Wetzel MD 04/05/2024 9:15 AM CDT - 04/05/2024 11:[address] [facility] [address] [place] [id number] Avery Gamez MD cystoscopy with urethra stricture dilation with Optilume balloon 04/05/2024 7:52 AM CDT - 04/06/2024 12:00 PM CDT Hospital Encounter [facility] [address] [place] [address] Avery Gamez MD Discharge Disposition: Home Self Care 04/04/2024 Travel 03/30/2024 1:45 PM CDT Orders Only [facility] [address] [place] [address] Lab, [facility] 03/30/2024 Travel 03/22/2024 8:20 AM CDT Preop Visit [facility] [address] [place] [address] Alfreda Thompson, Pre-Op Exam (04/05/24/UROLOGY/MAT TT JOHN/MICHAEL IS UROLOGY/DR IGNACIO/cystoscopy with urethra stricture dilation with Optilume balloon) 03/22/2024 Orders Only [facility] [address] [place] [place] [address] Alfreda Thompson, 1 scan: (1-Ord) NFLD-EKG-5.23.24 03/22/2024 Telephone [facility] [address] [place] [address] Alfreda Thompson, Appointment 03/22/2024 Travel 03/19/2024 Orders Only [facility] Scanner 1 scan: (1-Ord) [facility], CYSTOSCOPY, 03/19/2024 02/17/2024 8:50 AM CDT Office Visit [facility] [address] [place] [address] Chalo Kidd MD Musculoskeletal Problem (Left foot pain for a few weeks per patient) 02/17/2024 Travel from Last 3 Months Immunizations Name Administration Dates Next Due Amb Influenza, Inact (High-d ose) (Flu Clinic Only) 08/20/2016 COVID-19 vaccine (Moderna 100mcg/0.5mL) PF, MDV 02/01/2022 COVID-19 vaccine (Pfizer-Bio NTech 30mcg/0.3mL) PF, MDV 01/17/2021,12/27/2020 Influenza, High-dose Inactivated 019,08/02/2018,08/11/2017,2014 Influenza, IIV3 (Age >=3 years) 08/15/20 13,09/08/2012,2011,2009 Influenza, IIV4 07/27/2014 Influenza, Inactivated AIIV4 (Age 65+ Years) Preserv Free 07/31/2023,07/07/2022,07/25/2021 Pneumococcal Poly,23-Valent (Pneumovax) 09/27/2016 Pneumococcal conj 13-Valent (Prevnar 13) 08/27/2015 Td (Age >=7 Years) 01/17/2004 Tdap 09/19/2013 Zoster (Shingrix-RZV, recombinant) 04/21/2020, Zoster (Zostavax-ZVL, live) 07/11/2017 Zoster, Unspecified Formulation 07/31/2019 Family History Medical History Relation Name Comments Other Father Chepe had no co ntact w his father after divorce when he was a young child Other Mother Dementia; 83 Relation Name Status Comments Father Mother Social History Tobacco Use Types Packs/Day Years Used Date Smoking Tobacco: Never Smokeless Tobacco: Never Tobacco Cessation:Counseling Given: Yes Alcohol Use Standard Drinks/Week Comments Yes 0 (1 standard drink = 0.6 oz pur e alcohol) 0-2 beers per month PHQ-2 Answer Date Recorded PHQ-2 TOTAL SCORE 0 05/31/2023 Social Connections Answer Date Recorded Frequency of Communication with Friends and Fami ly 0 02/17/2024 Alcohol Use Answer Date Recorded How often do you have a drink containing alcohol ? 1 02/17/2024 How many drinks containing a lcohol do you have on a typical day when you are drinking? 0 02/17/2024 How often do you have five or more drinks on one occasion? 0 02/17/2024 Financial Resource Strain Answer Date R ecorded Difficulty of Paying Living Expenses 3 02/17/2024 Difficulty of Paying Living Expenses Not on file 02/17/2024 Food Insecurity Answer Date Recorded Worried About Running Out of Food in the Last Ye ar 1 02/17/2024 Transportation Needs Answer Date Record ed Lack of Transportation (Medical) 1 02/17/2024 Housing Stability Answer Date Recorded Unable to Pay for Housing in the Last Year 1 02/17/2024 Sex and Gender Information Value Date Recorded Sex Assigned at Not on file Gender Identity Not on file Sexual Orientation Not on file Obstetrics History Last Filed Vital Signs Vital Sign Reading Time Taken Comments Blood Pressure 157/81 05/08/2024 1:55 PM CDT Pulse 54 05/08/2024 1:55 PM CDT Temperature 37.1 ??C (98.7 ??F) 04/06/2024 8:00 AM CD T Respiratory Rate 17 04/06/2024 8:00 AM CDT Oxygen Saturation 100% 05/08/2024 1:55 PM CDT Inhaled Oxygen Concentration - - Weight 77.2 kg (170 lb 1.6 oz) 05/08/2024 1:55 P M CDT Height 162.6 cm (5' 4) 05/08/2024 1:55 PM CDT Body Mass Index 29.2 05/08/2024 1:55 PM CDT Plan of Treatment Upcoming Encounters Date Type Department Care Team (Late st Contact Info) Description 06/05/2024 7:30 AM CDT Office Visit [facility] [address] [place] [address] Chalo Kidd MD [address] [place] [address] Health Maintenance Due Date Last Done Comments Tetanus booster 09/19/2023 09/19/2013, 01/17/2004 Medicare Wellness for age 65+ 05/31/2024, 05/24/2022, 05/21/2021, Additional history exists Depression screening for age 12+ 06/01/2024 06/01/2023, 05/31/2023, 05/25/2022, Additional history exists Influenza for age 65+ 07/01/2024 07/31/2023 , 07/07/2022, 07/25/2021, Additional history exists BMI (ht and wt on same day) for age 18+ 05/08/2025 05/08/2024, 03/22/2024, 05/31/2023, Additional history exists Lipids for age 45-75 06/01/2028 06/01/2023, 06/01/2022, 04/21/2020, Additional history exists Colonoscopy through age 75 05/26/203005/26, 05/26/2023, 02/23/2018, Additional history exists Tdap Completed 09/19/2013 Pneumococcal series for age 65+ Completed 6, 08/27/2015 Zoster (shingles) series for age 50+ Completed 04/21/2020, 03/17/2019, 07/11/2017 Hepatitis C screening for ag e 18-79 Completed 05/21/2021 COVID-19 vaccine series Completed 02/02/20 24, 07/31/2023, 02/27/2023, Additional history exists Procedures Procedure Name Priority Date/Time Associated Diagnosis Comments SCAN-OPERATIVE/UT OCEDURE REPORT 05/02/2024 12:00 AM CDT SUPRAGLOTTIC-LMA Routine 04/05/2024 10:08 AM CDT CYSTOSCOPY DILATION URETHRA Elective 04/05/2024 9:35 AM CDT Post-traumatic anterior urethral stricture Case Notes OPTILUME BALLOON SCAN-CARDIAC STRIP 04/05/2024 12:00 AM CDT POTASSIUM Routine 03/30/2024 1:55 PM CDT Pre-op exam EKG 12 LEAD Routine 03/22/2024 1:55 PM CDT Irregular heart rhythm UT READING EKG - NO CHARGE, COMP ONLY Routine 03/22/2024 1:54 PM CDT Irregular heart rhythm HEMOGLOBIN Routine 03/22/2024 9:31 AM CDT Pre-op exam SCAN-OPERATIVE/UT OCEDURE REPORT 03/19/2024 12:00 AM CDT LIPID PANEL W REFLEX MEASURED LDL Routine 06/01/2023 9:00 AM CDT Pure hypercholesterolemia COLONOSCOPY 05/26/2023 12:51 PM CDT ANTI HCV Routine 05/21/2021 8:44 AM CDT Need for hepatitis C screening test from Last 3 Months or Most Recently Relevant to Health Maintenance Results * SCAN-OPERATIVE/PROCEDURE REPORT (05/02/2024 12:00 AM CDT) Scanner OTHER * Supraglottic (04/05/2024 10:08 AM CDT) Narrative Charles Terrell CRNA Student - 04/05/2024 10:08 AM CDT Charles Terrell CRNA Student ? 04/05/2024 10:09 AM Procedure: Supraglottic Patient location during procedure: OR Supraglottic Airway Properties Mask Ventilation: easy Type: unique Tube Size: 5 Insertion Attempts: 1 Placement Verification: auscultation and CO2 detection Assessment Assessment: atraumatic and dentition unchanged Airway Intervention: secured Ja Wetzel MD ANESTHESIA PX NOTE ORDERABLES * SCAN-CARDIAC STRIP (04/05/2024 12:00 AM CDT) Narrative 04/05/2024 12:00 AM CDT Ordered by an unspecified provider. Other Clinical Staff OTHER * POTASSIUM (03/30/2024 1:55 PM CDT) POTASSIUM 4.5 3.5 - 5.1 mmol/L 03/30/2024 11:32 PM CDT [facility] Blood BLOOD SPECIMEN / Unknown Butterfly / Unknown 03/30/2024 1:55 PM CDT 03/30/2024 1:56 PM CDT Alfreda Thompson DO [facility] [address] [place] [address], * EKG 12 LEAD (03/22/2024 1:55 PM CDT) Alfreda Thompson DO EKG ORD * UT READING EKG - NO CHARGE, COMP ONLY (03/22/2024 1:54 PM CDT) Alfreda Thompson DO PB - PROVIDER READ INGS * HEMOGLOBIN (03/22/2024 9:31 AM CDT) HEMOGLOBIN 13.5 13.5 - 17.5 g/dL 03/22/2024 9:40 AM CDT [facility] MCV 89 80 - 100 fL 03/22/2024 9:40 AM CDT [facility] Blood BLOOD SPECIMEN / Unknown Venipuncture / Unknown 03/22/2024 9:31 AM CDT 03/22/2024 9:31 AM CDT Alfreda Thompson DO HEMATOLOGY [facility] [address] [place] [address], [place] [phone] * SCAN-OPERATIVE/PROCEDURE REPORT (03/19/2024 12:00 AM CDT) Scanner OTHER * LIPID PANEL W REFLEX MEASURED LDL (06/01/2023 9:00 AM CDT) CHOLESTEROL,TOTAL 147 100 - 199 mg/dL 06/01/2023 5:33 PM CDT [facility] Comment: Cholesterol, Total Reference Ranges Desirable <200 mg/dL Borderline 200-239 mg/dL High >=240 mg/dL TRIGLYCERIDES 50 <150 mg/dL 06/01/2023 5:33 PM CDT [facility] HDL CHOLESTEROL 55 >40 mg/dL 5:33 PM CDT [facility] NON-HDL CHOLESTEROL 92 <145 mg/dl 06/01/2023 5:33 PM CDT [facility] CHOL/HDL RATIO 2.67 <4.50 06/01/2023 5:33 PM CDT [facility] LDL CHOLESTEROL 82 <=130 mg/dL 06/01/2023 5:33 PM CDT [facility] VLDL CHOLESTEROL 10 <=30 mg/dL 06/01/2023 5:33 PM CDT [facility] PROVIDER ORDERED STATUS RANDOM 06/01/2023 5:33 PM CDT [facility] Blood BLOOD SPECIMEN / Unknown Butterfly / Unknown 06/01/2023 9:00 AM CDT 06/01/2023 9:02 AM CDT Chalo Kidd MD CHEMISTRY [facility] [address] [place] [address], [place] * COLONOSCOPY (05/26/2023 12:51 PM CDT) 05/26/2023 12:5 1 PM CDT Narrative Transcriptions Selvin Cm MD - 05/26/2023 2:01 PM CDT Patient Name: Chepe Allred Procedure Date: 05/26/2023 Gender: Male Date of : 1950 Admit Type: Outpatient Procedure: Colonoscopy Proceduralist: Selvin Cm MD , Shira Solares (Nurse), Maddi Vergara (Nurse) Indications/Pre-Op Diagnosis: High risk colon cancer surveillance:Personal history of adenoma less than 10 mm in size, Last colonoscopy: January 2018 Medications: Fentanyl 100 micrograms IV, Midazolam 4 mgIV, The level of sedation administered wasmoderate Procedure Description: The patient had risks, benefits and alternatives explained to andgave informed consent. The patient had a stable cardiopulmonary status and judged an adequate candidate for conscious sedation. The endoscope [id number]-[id number] [id number] was passed through the anus andadvanced to the cecum, identified by appendiceal orifice and ileocecal valve.The colonoscopy was performed without difficulty. The patient toleratedthe procedure well. The quality of the bowel preparation was good. The ileocecal valve, appendiceal orifice, and rectum were photographed. Complications: No immediate complications. Estimated Blood Loss & Specimen: Estimated blood loss: none. Specimen collected - Yes and sent to Laboratory Findings: The perianal and digital rectal examinations were normal. A 3 mm polyp was found in the ascending colon. The polyp was pedunculated. The polyp was removed with a cold snare. Resection and retrieval were complete. The exam was otherwise without abnormality on direct and retroflexion views. Impressions/Post-Op Diagnosis: - One 3 mm polyp in the ascending colon, removed with a cold snare. Resected and retrieved. - The examination was otherwise normal on direct and retroflexionviews. Recommendation: - Patient has a contact number available for emergencies. The signsand symptoms of potential delayed complications were discussed with the patient. Return to normal activities tomorrow. Written discharge instructions were provided to the patient. - Resume previous diet. - Continue present medications. - Await pathology results. - Repeat colonoscopy in 7 years for surveillance. Moderate Sedation: A time out was performed before the procedure. Moderate (conscious) sedation was administered by the endoscopy nurse and supervised bythe endoscopist. The following parameters were monitored: oxygensaturation, heart rate, blood pressure, EKG, CO2, respiratory rate, adequacy of pulmonary ventilation and reponse to care. Please refer to the patient's medical record flowsheets and nursing notes for moderate sedation details. Total physician intraservice time was 21 minutes. Selvin Cm MD 05/26/2023 2:01:11 PM This report has been signed electronically. Note Initiated On: 05/26/2023 12:51 PM Procedure Code(s): --- Professional --- 32605, Colonoscopy, flexible; with removalof tumor(s), polyp(s), or other lesion(s) bysnare technique Diagnosis Code(s): --- Professional --- Z86.010, Personal history of colonicpolyps D12.2, Benign neoplasm of ascending colon CPT copyright 2021 [employer]. All rights reserved. The codes documented in this report are preliminary and upon push button switch assembler reviewmay be revised to meet current compliance requirements. Scope In: 1:37:57 PM Scope Withdrawal Time 0 hours 8 minutes 36 seconds Scope Out: 1:57:28 PM Selvin Cm MD PROCEDURE ORD * ANTI HCV (05/21/2021 8:44 AM CDT) HEPATITIS C ANTIBODY Non-React cira Non-React cira 05/21/2021 7:59 PM CDT [facility] Comment:Antibodies to HCV no t detected; does not exclude the possibility of exposure to HCV. Blood BLOOD SPECIMEN / Unknown Butterfly / Unknown 05/21/2021 8:44 AM CDT 05/21/2021 8:44 AM CDT Con Akins DO SEND OUTS [facility] [address] [place] [address], from Last 3 Months or Most Recently Relevant to Health Maintenance Advance Directives Documents on File Type Date Recorded Patient Community Development Manager Expl anation Healthcare Directive 12/03/2014 3:24 PM ALL [facility], 02/24/2012 * Full Code (Latest Code Status on File) Date Activated Date Inactivated Comments 04/05/2024 8:12 AM 04/06/2024 3:13 PM Question Answer Comments Code Status Discussion: Unable to Assess Preferences, Provider to review later Care Teams Manager Regulatory Relationship Specialty Start Date End Date Chalo Kidd MD [address] [place] [address] PCP - General 07/06/06
--- OUTSIDE RECORDS SUMMARY | 2024-05-15 05:54 | XMS_ITS | Data Portability ---
Author Organization [facility], [facility] Address [address] [place] [address] Care Team Providers Care Bdc Manager Name Role Phone [place] Primary Care Provider [phone] Assessment No assessment recorded. Plan of Treatment Reminders Order Date Submit Date Provider Last Modified By Organization Details Last Modified Time Details Appointments PSA 10 2023 01:20P M [facility] Not available Not available Not available ESTABLISH ED 10 2023 01:40P M Avery Gamez MD Not available Not available Not available Lab PSA, serum or plasma 2023 024 [email or web address] [id number] [facility], [address], [place], [address], 02/29/2024 15:11:58 PSA, total, serum or plasma 2023 024 [email or web address] [facility], [address], [place], [address], 03/01/2024 09:38:28 [email or web address] s, dipstick 2023 024 [facility], [address], [place], [address], 03/20/2024 12:16:21 Referral None recorded. Procedures electromy ography studies (EMG) of anal or urethral sphincter , other than needle (PROC) 2023 024 [email or web address] Not available 03/08/2024 07:51:52 complex cystometr ogram with voiding pressure studies (PROC) 2023 024 rebbert Not available 03/08/2024 07:51:52 complex uroflowme try (PROC) 2023 024 rebbert Not available 03/08/2024 07:51:52 cystoscop y (PROC) 2023 024 [email or web address] Not available 03/05/2024 16:51:39 Surgeries cystouret hroscopy, with calibrati on and/or dilation of urethral stricture or stenosis (SURG) 2023 024 [email or web address] Not available 04/04/2024 10:18:16 Imaging None recorded. Medication Orders None recorded. Patient TargetsNo targets recorded. Patient Instructions Encounter Date Encounter Id Patient Instructions Last Modified By Organization Details Last Modified Time 03/02/2024 [id number] Telephone - 3 minutes Not available 03/02/2024 12:55:29 Reason for Referral None Reported. Results Created Date Observation Date Name Description Value Unit Range Abnormal Flag LastModifiedBy Organization Detail LastModifiedTime 02/29/20 24 02/29/2024 PSA, serum or plasm a PSA 1.6ng/ mL 0-4.0 NG/mL Not Available [facility] [address], [place], [address], 02/29/2024 15:02:27 03/19/20 24 03/19/2024 urina lysis , dipst ick BLOOD Negati ve Not Available [facility] [address], [place], [address], 03/09/2024 14:18:54 03/19/20 24 03/19/2024 urina lysis , dipst ick BILIRUBIN Negati ve Not Available [facility] [address], [place], [address], 03/09/2024 14:18:54 03/19/20 24 03/19/2024 urina lysis , dipst ick UROBILINOGEN 0.2 mg/dL (Norm) Not Available [facility] [address], [place], [address], 03/09/2024 14:18:54 03/19/20 24 03/19/2024 urina lysis , dipst ick KETONES Negati ve Not Available [facility] [address], [place], [address], 03/09/2024 14:18:54 03/19/20 24 03/19/2024 urina lysis , dipst ick PROTEIN Negati ve Not Available [facility] [address], [place], [address], 03/09/2024 14:18:54 03/19/20 24 03/19/2024 urina lysis , dipst ick NITRITES Negati ve Not Available [facility] [address], [place], [address], 03/09/2024 14:18:54 03/19/20 24 03/19/2024 urina lysis , dipst ick GLUCOSE Negati ve Not Available [facility] [address], [place], [address], 03/09/2024 14:18:54 03/19/20 24 03/19/2024 urina lysis , dipst ick p.H. 6.0 Not Available [facility] [address], [place], [address], 03/09/2024 14:18:54 03/19/20 24 03/19/2024 urina lysis , dipst ick S.G. (Specific Winside) 1.015 Not Available [facility] [address], [place], [address], 03/09/2024 14:18:54 03/19/20 24 03/19/2024 urina lysis , dipst ick LEUKOCYTES Negati ve Not Available [facility] [address], [place], [address], 03/09/2024 14:18:54 Result Notes None recorded. Procedures Surgical History Date Name Laterality Status Provider Name and Address Organization Details Recorded Time 4 Bladder Scan completed Giovannii Lundy-Maria C ero null, [facility] 05/02/2024 09:30:44 4 Cystoscopy- male completed Avery Gamez MD [address] [place] [address],[address], [place], [address], [facility] 03/19/2024 18:37:32 4 [facility] null, [facility] 03/09/2024 14:18:32 4 UroCuff completed Brigida Ball null, [facility] 03/01/2024 15:19:08 4 Bladder Scan completed Brigida Ball null, [facility] 03/01/2024 15:17:35 4 [employer]PERVISOR [employer]/blood draw completed Lucia arguelles, [facility] 02/29/2024 15:02:21 4 Bladder Scan completed Lucia arguelles, [facility] 02/29/2024 15:02:17 3 Bladder Scan completed Avery Gamez MD [address] [place] [address],[address], [place], [address], [facility] 06/29/2023 15:56:16 3 Urinalysis completed Evonne arguelles, [facility] 06/03/2023 14:30:33 3 Bladder Scan completed Evonne arguelles, [facility] 06/03/2023 14:28:26 3 Bladder Scan completed Avery Gamez MD [address] [facility],[address], [place], [address], [facility] 02/23/2023 14:50:29 Imaging Results None recorded. Procedure Notes None recorded. Medical Equipment None Reported. Allergies No known drug allergies Medications Name Sig Start Date Stop Date Status Note LastModified by Organization Details LastModified Time atorvastati n 40 mg tablet TAKE 1 TABLET BY MOUTH AT BEDTIME active Not Available Not Available No t Available atorvastati n 20 mg tablet 02/23 completed Not Available Not Available Not Available amlodipine 2.5 mg tablet active Not Available Not Available Not Available amlodipine 5 mg tablet 02/28 completed Not Available Not Available Not Available tamsulosin 0.4 mg capsule Take 2 capsules every day by oral route. active Not Available Not Available No t Available lisinopril 10 mg tablet Take 1 tablet every day by oral route. 02/28 completed Not Available Not Available Not Available lisinopril 5 mg tablet active Not Available Not Available Not Available metoprolol succinate ER 25 mg tablet,exte nded release 24 hr TAKE 1 TABLET BY MOUTH EVERY DAY 02/23 completed Not Available Not Available Not Available methylpredn isolone 4 mg tablets in a dose pack TAKE 6 TABLETS ON DAY 1 DIRECTED ON PACKAGE AND DECREASE BY 1 TAB EACH DAY FOR A TOTAL OF 6 DAYS 02/23 completed Not Available Not Available Not Available ketoconazol e 2 % topical cream MASSAGE INTO FEET ONCE DAILY 02/23 completed Not Available Not Available Not Available finasteride 5 mg tablet active Not Available Not Available Not Available cyclobenzap rine 5 mg tablet TAKE 1 TABLET BY MOUTH 3 TIMES DAILY IF NEEDED FOR MUSCLE SPASM. 02/23 completed Not Available Not Available Not Available Toviaz 4 mg tablet,exte nded release active Not Available Not Available Not Available GaviLyte-G 236 gram-22.74 gram-6.74 gram-5.86 gram oral solution DRINK 2 LITERS THE DAY BEFORE THE PROCEDURE AND 2 LITERS 6 HOURS PRIOR TO PROCEDURE . 06/29 completed Not Available Not Available Not Available Myrbetriq 50 mg tablet,exte nded release Take 1 tablet every day by oral route. 02/23 completed Not Available Not Available Not Available Gemtesa 75 mg tablet TAKE 1 TABLET BY MOUTH DAILY 2023 active Not Available Not Available Not Avai lable Vitals Date Recorded Body height Body mass index (BMI) Body weight Provider Name and Address Organization Details Last Updated DateTime 02/29/2024 162.56 cm 26.9 kg/m2 [id number] shayna Chenoza [facility] 02/29/2024 15:00:59 Date Recorded Body height Body mass index (BMI) Body weight Provider Name and Address Organization Details Last Updated DateTime 03/02/2024 162.56 cm 26.9 kg/m2 [id number] shayna Chenoza [facility] 03/02/2024 12:32:11 Date Recorded Body height Body mass index (BMI) Body weight Provider Name and Address Organization Details Last Updated DateTime 03/19/2024 162.56 cm 28 kg/m2 71913.56 shayna Gómez [facility] 03/19/2024 09:29:24 Date Recorded Body height Body mass index (BMI) Body weight Provider Name and Address Organization Details Last Updated DateTime 05/02/2024 162.56 cm 27.3 kg/m2 19314.19 shayna Gómez [facility] 05/02/2024 09:30:05 Social History Question Answer Notes LastModified by Organizat ion Details LastModified Time Tobacco Smoking Status [facility]oker [facility] 06/09/2022 14:17:17 What Is Your Level Of Alcohol Consumption? Occasional Information not available 02/23/2023 How Many Times Per Week Do You Consume Alcohol? Less Than 1 Time Per Week Information not available 06/29/2023 What Is Your Level Of Caffeine Consumption? Occasional Information not available 02/23/2023 Are You Currently Employed? No Information not available 06/29/2023 Recreational Drug Use No Information not available 06/29/2023 What Was The Date Of Your Most Recent Tobacco Screening? 05/02/2024 [email or web address] Information not available 05/02/2024 Have You Ever Been Counseled For Unhealthy Alcohol Use? No Information not available 06/29/2023 What Is Your Relationship Status? Single Information not available 06/29/2023 Do You Use Any Illicit Or Recreational Drugs? No Information not available 06/29/2023 Sex: Unknown Functional Status None recorded. Mental Status None recorded. Family History Nothing Reported. Medical History Condition Response High Blood Pressure Y High Cholesterol Y Immunizations Vaccine Type Date Status Provider Name and Address Organization Details Recorded Time COVID-19, mRNA, LNP-S, bivalent, PF, 50 mcg/0.5 mL or 25mcg/0.25 mL dose 02/27/2023 completed Reina Eric null, [facility] 10/18/2023 12:38:59 Influenza, adjuvanted, quadrivalent, PF 07/31/2023 completed Lucia Salgadoa null, [facility] 02/29/2024 15:01:07 COVID-19, mRNA, LNP-S, PF, 50 mcg/0.5 mL 02/02/2024 completed [facility] 02/[facility]/2024 15:01:07 COVID-19, mRNA, LNP-S, PF, 50 mcg/0.5 mL 07/31/2023 completed Lucia Jackson null, [facility] 02/29/2024 15:01:07 Tdap 02/17/2024 completed Lucia Jackson [facility] 02/29/2024 15:01:07 pneumococcal polysaccharide PPV23 09/27/2016 completed Avery Gamez MD [address] [place] [address], [address], [facility] 02/23/2023 14:48:02 Pneumococcal conjugate PCV 13 08/27/2015 completed Avery Gamez MD [address] [place] [address], [address], [facility] 02/23/2023 14:48:02 zoster recombinant 03/17/2019 completed Qing reyes null, [facility] 07/06/2023 12:47:54 Influenza, adjuvanted, quadrivalent, PF 07/07/2022 completed Qing [place] null, [facility] 07/06/2023 12:47:54 Influenza, adjuvanted, quadrivalent, PF 07/25/2021 completed Qing [place] null, [facility] 07/06/2023 12:47:54 COVID-19, mRNA, LNP-S, PF, 100 mcg/0.5mL dose or 50 mcg/0.25mL dose 02/01/2022 completed Qing [place] null, [facility] 07/06/2023 12:47:54 COVID-19, mRNA, LNP-S, PF, 30 mcg/0.3 mL dose 12/27/2020 completed Qing [place] null, [facility] 07/06/2023 12:47:54 COVID-19, mRNA, LNP-S, PF, 30 mcg/0.3 mL dose 01/17/2021 completed Qing [place] null, [facility] 07/06/2023 12:47:55 COVID-19, mRNA, LNP-S, PF, 30 mcg/0.3 mL dose 07/25/2021 completed Qing [place] null, [facility] 07/06/2023 12:47:55 COVID-19, mRNA, LNP-S, bivalent, PF, 50 mcg/0.5 mL or 25mcg/0.25 mL dose 07/07/2022 completed Qing [place] null, [facility] 07/06/2023 12:47:55 Tdap 09/19/2013 [facility] [place] [facility] 12:47:55 zoster live 07/11/2017 [facility] [place] [facility] 12:47:55 Influenza, high-dose, trivalent, PF 08/02/2018 completed Qing [place] null, [facility] 07/06/2023 12:47:55 Influenza, high-dose, trivalent, PF 08/08/2019 completed Qing [place] null, [facility] 07/06/2023 12:47:55 Influenza, high-dose, trivalent, PF 08/11/2017 completed Qing [place] null, [facility] 07/06/2023 12:47:55 Influenza, high-dose, trivalent, PF 08/20/2016 completed Qing [place] null, [facility] 07/06/2023 12:47:55 Influenza, high-dose, trivalent, PF 08/27/2015 completed Qing [place] null, [facility] 07/06/2023 12:47:55 Influenza, split virus, trivalent, preservative 08/15/2013 [facility]/2023 12:47:55 Influenza, split virus, trivalent, preservative 08/31/2010 [facility] 07/[facility]/2023 12:47:55 Influenza, split virus, trivalent, preservative 09/08/2012 completed Qing arguelles, [facility] 07/06/2023 12:47:55 Influenza, split virus, trivalent, PF 2011 [facility]/2023 12:47:55 Influenza, split virus, trivalent, PF 09/22/2009 [facility] 07/06/2023 12:47:55 Td (adult), 2 Lf tetanus toxoid, preservative free, adsorbed 01/17/2004 [facility] 07/06/2023 12:47:55 Influenza, split virus, quadrivalent, PF 07/27/2014 [facility]/2023 12:47:55 Past Encounters Encounter ID Performer Location Encounter Start Date Encounter Closed Date Diagnosis/Indication Diagnosis SNOMED-CT Code [id number] MD MARIANNE Weldon_Sergio [address] [place] [id number] 06/09/2022 13:59:57 06/14/2022 11:17:32 Increased frequency of urination [id number] MD MARIANNE Benedict_Sergio [address] [place] [address] 02/23/2023 14:34:45 02/25/2023 11:42:21 Benign prostatic hyperplasia with outflow obstruction [id number] Increased frequency of urination [id number] MD Arielle W[address]. [place] [address] 06/03/2023 13:41:26 06/07/2023 09:28:27 Benign prostatic hyperplasia with outflow obstruction [id number] Avery Gamez MD [facility] [address] [place] [address] 06/29/2023 15:03:30 07/08/2023 14:09:14 Benign prostatic hyperplasia with outflow obstruction 131115075 Increased frequency of urination [id number] Avery Gamez MD [facility] [address] [place] [address] 02/29/2024 14:37:04 03/01/2024 08:15:25 Benign prostatic hyperplasia with outflow obstruction 243743602 Increased frequency of urination 121610183 [id number] Brigida Ball [facility] [address] [place] [address] 03/01/2024 11:37:35 03/02/2024 11:28:35 Benign prostatic hyperplasia with outflow obstruction [id number] Daniela Bermudez [facility] [address] [place] [address] 03/02/2024 12:31:40 03/05/2024 13:37:19 Benign prostatic hyperplasia with outflow obstruction 654753710 Increased frequency of urination 411219806 [id number] Avery Gamez MD [facility] [address] [place] [address] 03/19/2024 09:04:04 03/20/2024 14:36:17 Benign prostatic hyperplasia with outflow obstruction [id number] Increased frequency of urination 174219456 Urethral stricture 06657 002 [id number] Avery Gamez MD [facility] [address] [place] [address] 05/02/2024 09:13:59 05/11/2024 13:29:16 Urethral stricture [id number] Benign pro static hyperplasia with outflow obstruction 403241046 Increased frequency of urination [id number] Health Concerns Section Related Observation LastModified by Organization Detai ls LastModified Time None Recorded Concern Status LastModified by Organization Details LastModified Time None Recorded Advance Directives Directive None Recorded Payers Encounter Date Sequence Insurance Name Policy Number Policy Blanco Covered Member ID Blanco Member ID Guarantor Name 02/29/2024 1 [place] [id number] Chepe Allred [id number] Chepe Allred 03/01/2024 1 [place] [id number] Chepe Allred [id number] Chepe Allred 03/02/2024 1 [place] [id number] Chepe Allred [id number] Chepe Allred 03/19/2024 1 [place] [id number] Chepe Allred [id number] Chepe Allred 05/02/2024 1 [place] [id number] Chepe Allred [id number] Chepe Lezama Brigida Notes Date Note Type Note Provider Name and Address Organization Details Recorded Time 02/29/2024 text/html HPI Notes: 73 yo male with H/O BPH - s/p TURP (04/09/19) - 33 gm (benign - chronic prostatitis). He is on Finasteride 5 mg daily (start February 2017), Flomax 0.8 mg daily, and Toviaz 8 mg daily. He tried Oxybutynin ER 5 mg daily (caused constipation), Myrbetriq 50 mg daily (no improvement / caused constipation), Toviaz 8 mg daily (no improvement), and Flomax 0.8 mg daily (minimal improvement - light-headed). He is on Finasteride 5 mg daily, Tamsulosin 0.4 mg daily, and Gemtesa 75 gm daily. Urodynamics ([facility] - 08/23/18) revealed obstruction - voided 122 mL - max flow rate = 7 mL/s - max detrusor pressure = 102 cm H2O - s/p TURP (04/09/19) - 33 gm (benign - chronic prostatitis 02/23/23 - He presents for follow-up on urination. He voids every 1-2 hours during the day and 2x/night. He notes variable stream - denies hesitancy, urgency, or dysuria. 06/07/23 - He presents for follow-up on urination. He states urination is better with Gemtesa (less nocturia). He voids every 1-2 hours during the day and 0-1x/night. + Slow stream 5/1/24 - He presents for follow-up on urination. He voids every 1-2 hours during the day and 3x/night - PVR = 114mL - PSA - 1.6 PSA - 1.64 (12/10/05) - 1.74 (09/09/08) - 1.96 (09/08/12) - 4.86 (05/05/17) - 1.27 (08/04/17) - 1.73 (03/06/19) - 0.63 (04/21/20) - 0.87 (05/21/21) - 1.03 (06/01/22) - 1.6 (02/29/24) Avery Gamez MD [address] [place] [address],[address], [place], [address], [facility] 02/29/2024 20:48:58 03/02/2024 text/html HPI Notes: 73 yo male with H/O BPH - s/p TURP (04/09/19) - 33 gm (benign - chronic prostatitis). He is on Finasteride 5 mg daily (start February 2017), Flomax 0.8 mg daily, and Toviaz 8 mg daily. He tried Oxybutynin ER 5 mg daily (caused constipation), Myrbetriq 50 mg daily (no improvement / caused constipation), Toviaz 8 mg daily (no improvement), and Flomax 0.8 mg daily (minimal improvement - light-headed). He is on Finasteride 5 mg daily, Tamsulosin 0.4 mg daily, and Gemtesa 75 gm daily. Urodynamics ([facility] - 08/23/18) revealed obstruction - voided 122 mL - max flow rate = 7 mL/s - max detrusor pressure = 102 cm H2O - s/p TURP (04/09/19) - 33 gm (benign - chronic prostatitis 02/23/23 - He presents for follow-up on urination. He voids every 1-2 hours during the day and 2x/night. He notes variable stream - denies hesitancy, urgency, or dysuria. 06/07/23 - He presents for follow-up on urination. He states urination is better with Gemtesa (less nocturia). He voids every 1-2 hours during the day and 0-1x/night. + Slow stream 02/29/24 - He presents for follow-up on urination. He voids every 1-2 hours during the day and 3x/night. UroCuff (03/01/24) - PFS score - 60% - + obstruction - voided - 307 mL - Qmax - 4.7 6 mL/s - Pcuffint - 200 cm H2O - PVR = 45 mL 03/02/24 - He presents for follow-up on urination / Urocuff results. He voids every 1-2 hours during the day and 3x/night. PSA - 1.64 (12/10/05) - 1.74 (09/09/08) - 1.96 (09/08/12) - 4.86 (05/05/17) - 1.27 (08/04/17) - 1.73 (03/06/19) - 0.63 (04/21/20) - 0.87 (05/21/21) - 1.03 (06/01/22) - 1.6 (02/29/24) Prior to conducting our telephone visit, the patient was apprised of the risks, benefits and alternatives to telephone visits including but not limited to poor audio quality, interrupted visits due to technological limitations, delays in medical evaluation and treatment due to deficiencies or failures of equipment, failure of security protocols resulting in a breach of privacy of personal medical information and a lack of access to complete medical records resulting in not fully informed. It was not possible for the patient to sign the privacy regulations, HIPAA release and assignment of benefits forms. The patient was given the opportunity to ask questions about these policies and gave verbal acknowledgement and approval of these policies as well as to hold this meeting by telephone. Lastly, the patient agreed to allowing their medication history to be pulled from a national pharmacy database to facilitate and coordinate their care. Avery Gamez MD [address] [place] [address],[address], [place], [address], [facility] 03/02/2024 15:00:50 03/19/2024 text/html HPI Notes: 73 yo male with H/O BPH - s/p TURP (04/09/19) - 33 gm (benign - chronic prostatitis). He is on Finasteride 5 mg daily (start February 2017), Flomax 0.8 mg daily, and Toviaz 8 mg daily. He tried Oxybutynin ER 5 mg daily (caused constipation), Myrbetriq 50 mg daily (no improvement / caused constipation), Toviaz 8 mg daily (no improvement), and Flomax 0.8 mg daily (minimal improvement - light-headed). He is on Finasteride 5 mg daily, Tamsulosin 0.4 mg daily, and Gemtesa 75 gm daily. Urodynamics ([facility]/EM[facility] - 08/23/18) revealed obstruction - voided 122 mL - max flow rate = 7 mL/s - max detrusor pressure = 102 cm H2O - s/p TURP (04/09/19) - 33 gm (benign - chronic prostatitis 02/23/23 - He presents for follow-up on urination. He voids every 1-2 hours during the day and 2x/night. He notes variable stream - denies hesitancy, urgency, or dysuria. 06/07/23 - He presents for follow-up on urination. He states urination is better with Gemtesa (less nocturia). He voids every 1-2 hours during the day and 0-1x/night. + Slow stream 02/29/24 - He presents for follow-up on urination. He voids every 1-2 hours during the day and 3x/night. UroCuff (03/01/24) - PFS score - 60% - + obstruction - voided - 307 mL - Qmax - 4.7 6 mL/s - Pcuffint - 200 cm H2O - PVR = 45 mL 03/02/24 - He presents for follow-up on urination / Urocuff results. He voids every 1-2 hours during the day and 3x/night. 5/20/24 - He presents for Cystoscopy to assess for prostatic regrowth. PSA - 1.64 (12/10/05) - 1.74 (09/09/08) - 1.96 (09/08/12) - 4.86 (05/05/17) - 1.27 (08/04/17) - 1.73 (03/06/19) - 0.63 (04/21/20) - 0.87 (05/21/21) - 1.03 (06/01/22) - 1.6 (02/29/24) Avery Gamez MD [address] [place] [address],[facility] [place], [address], [facility] 03/19/2024 18:41:39 05/02/2024 text/html HPI Notes: 73 yo male with H/O BPH - s/p TURP (04/09/19) - 33 gm (benign - chronic prostatitis). He is on Finasteride 5 mg daily (start February 2017), Flomax 0.8 mg daily, and Toviaz 8 mg daily. He tried Oxybutynin ER 5 mg daily (caused constipation), Myrbetriq 50 mg daily (no improvement / caused constipation), Toviaz 8 mg daily (no improvement), and Flomax 0.8 mg daily (minimal improvement - light-headed). He is on Finasteride 5 mg daily, Tamsulosin 0.4 mg daily, and Gemtesa 75 gm daily. Urodynamics ([facility] - 08/23/18) revealed obstruction - voided 122 mL - max flow rate = 7 mL/s - max detrusor pressure = 102 cm H2O - s/p TURP (04/09/19) - 33 gm (benign - chronic prostatitis UroCuff (03/01/24) - PFS score - 60% - + obstruction - voided - 307 mL - Qmax - 4.7 6 mL/s - Pcuffint - 200 cm H2O - PVR = 45 mL - Cystoscopy (03/19/24) revealed 3 (10 Fr) strictures in proximal penile urethra - s/p Cystoscopy with Optilume dilation of penile urethral strictures - (04/05/24) ( three (10 Fr) strictures in proximal penile urethra - 1+ Left lateral lobe regrowth) 05/02/24- He presents for post-op follow-up on Cystoscopy with Optilume balloon dilation of urethral stricture - (04/05/24). He states his stream is much stronger - denies dysuria - still has urgency. He voids every 1-2 hours during the day and 2-3x/night. - PVR = 111 mL PSA - 1.64 (12/10/05) - 1.74 (09/09/08) - 1.96 (09/08/12) - 4.86 (05/05/17) - 1.27 (08/04/17) - 1.73 (03/06/19) - 0.63 (04/21/20) - 0.87 (05/21/21) - 1.03 (06/01/22) - 1.6 (02/29/24) Avery Gamez MD [address], [place], [address], [facility] 05/02/2024 09:58:37
--- OUTSIDE RECORDS SUMMARY | 2024-05-15 05:54 | XMS_ITS | Continuity of Care Document ---
Author Organization [facility], [facility] Address [address] [place] [address] Care Team Providers Care Headend Technician Name Role Phone SIMINJAYLEN LAKE Primary Care Provider Assessment No assessment recorded. Plan of Treatment Reminders Order Date Submit Date Provider Last Modified By Organization Details Last Modified Time Details Appointments PSA 10 2023 01:20P M [facility] Not available Not available Not available ESTABLISH ED 10 2023 01:40P M Avery Gamez MD Not available Not available Not available Lab None recorded. Referral None recorded. Procedures None recorded. Surgeries None recorded. Imaging None recorded. Medication Orders None recorded. Patient TargetsNo targets recorded. Patient InstructionsNo instructions recorded. Reason for Referral None Reported. Procedures Surgical History Date Name Laterality Status Provider Name and Address Organization Details Recorded Time 4 Bladder Scan completed Gómez Stricklandrigal-Maria C ero blane, [facility] 05/02/2024 09:30:44 4 Cystoscopy- male completed Avery Gamez MD [address] [place] [address],[address], [place], [address], [facility] 03/19/2024 18:37:32 4 Keflex post Cysto completed Gómez Hallal-Maria C ero blane, [facility] 03/09/2024 14:18:32 4 UroCuff completed Brigida arguelles, [facility] 03/01/2024 15:19:08 4 Bladder Scan completed Brigida arguelles [facility] 03/01/2024 15:17:35 4 HANDLE MAKER/blood draw completed Lucia arguelles [facility] 02/29/2024 15:02:21 4 Bladder Scan completed Lucia arguelles [facility] 02/29/2024 15:02:17 3 Bladder Scan completed Avery Gamez MD [address], [place], [address], [facility] 06/29/2023 15:56:16 3 Urinalysis completed Evonne arguelles [facility] 06/03/2023 14:30:33 3 Bladder Scan completed Evonne arguelles [facility] 06/03/2023 14:28:26 3 Bladder Scan completed Avery Gamez MD [address], [place], [address], [facility] 02/23/2023 14:50:29 Imaging Results None recorded. Procedure [...] Updated DateTime 05/02/2024 162.56 cm 27.3 kg/m2 92738.19 g Gómez cook [facility] 05/02/2024 09:30:05 Social History Question Answer Notes LastModified by Organizat ion Details LastModified Time Tobacco Smoking Status Never Smoker [facility] 06/09/2022 14:17:17 What Is Your Level Of [...] mL dose 02/27/2023 completed Reina Eric null, [facility] 10/18/2023 12:38:59 Influenza, adjuvanted, quadrivalent, PF 07/31/2023 [facility]/2024 15:01:07 COVID-19, mRNA, LNP-S, PF, 50 mcg/0.5 mL 02/02/2024 completed [facility] 02/29/2024 15:01:07 COVID-19, mRNA, LNP-S, PF, 50 mcg/0.5 mL 07/31/2023 completed Lucia arguelles, [facility] 02/29/2024 15:01:07 Tdap 02/17/2024 completed [facility] 02/29/2024 15:01:07 pneumococcal polysaccharide PPV23 09/27/2016 completed Avery Gamez MD [address] [place] [address],[address], [address], [facility] 02/23/2023 14:48:02 Pneumococcal conjugate PCV 13 08/27/2015 completed Avery Gamez MD [address] [place] [address],[address], [address], [facility] 02/23/2023 14:48:02 zoster recombinant 03/17/2019 [facility] 07/06/2023 12:47:54 Influenza, adjuvanted, quadrivalent, PF 07/07/2022 completed Qing Mesa null, [facility] 07/06/2023 12:47:54 Influenza, adjuvanted, quadrivalent, PF 07/25/2021 completed Qing Mesa null, [facility] 07/06/2023 12:47:54 COVID-19, mRNA, LNP-S, PF, 100 mcg/0.5mL dose or 50 mcg/0.25mL dose 02/01/2022 completed Qing Mesa null, [facility] 07/06/2023 12:47:54 COVID-19, mRNA, LNP-S, PF, 30 mcg/0.3 mL dose 12/27/2020 completed Qing Mesa null, [facility] 07/06/2023 12:47:54 COVID-19, mRNA, LNP-S, PF, 30 mcg/0.3 mL dose 01/17/2021 completed Qing Mesa null, [facility] 07/06/2023 12:47:55 COVID-19, mRNA, LNP-S, PF, 30 mcg/0.3 mL dose 07/25/2021 completed Qing Mesa null, [facility] 07/06/2023 12:47:55 COVID-19, mRNA, LNP-S, bivalent, PF, 50 mcg/0.5 mL or 25mcg/0.25 mL dose 07/07/2022 completed Qing Mesa null, [facility] 07/06/2023 12:47:55 Tdap 09/19/2013 [facility]/2023 12:47:55 zoster live 07/11/2017 completed Qing Mesa null, [facility] 07/06/2023 12:47:55 Influenza, high-dose, trivalent, PF 08/02/2018 completed Qing Mesa null, [facility] 07/06/2023 12:47:55 Influenza, high-dose, trivalent, PF 08/08/2019 completed Qing Mesa null, [facility] 07/06/2023 12:47:55 Influenza, high-dose, trivalent, PF 08/11/2017 completed Qing Mesa null, [facility] 07/06/2023 12:47:55 Influenza, high-dose, trivalent, PF 08/20/2016 completed Qing Mesa null, [facility] 07/06/2023 12:47:55 Influenza, high-dose, trivalent, PF 08/27/2015 completed Qing arguelles [facility] 07/06/2023 12:47:55 Influenza, split virus, trivalent, preservative 08/15/2013 completed Qing arguelles [facility] 07/06/2023 12:47:55 Influenza, split virus, trivalent, preservative 08/31/2010 completed Qing arguelles [facility] 07/06/2023 12:47:55 Influenza, split virus, trivalent, preservative 09/08/2012 completed Qing arguelles [facility] 07/06/2023 12:47:55 Influenza, split virus, trivalent, PF 2011 completed Qing arguelles [facility] 07/06/2023 12:47:55 Influenza, split virus, trivalent, PF 09/22/2009 [facility] Qing arguelles [facility] 07/06/2023 12:47:55 Td (adult), 2 Lf tetanus toxoid, preservative free, adsorbed 01/17/2004 [facility] 07/06/2023 12:47:55 Influenza, split virus, quadrivalent, PF 07/27/2014 [facility] 07/06/2023 12:47:55 Past Encounters Encounter ID Performer Location Encounter Start Date Encounter Closed Date Diagnosis/Indication Diagnosis SNOMED-CT Code [id number] Avery Gamez MD [facility] [address] [place] [id number] 05/02/2024 09:13:59 05/11/2024 13:29:16 Urethral stricture 78877192 Benign pro static hyperplasia with outflow obstruction 362393801 Increased frequency of urination [id number] Health Concerns Section Related Observation LastModified by Organization Detai ls LastModified Time None Recorded Concern Status LastModified by Organization Details LastModified Time None Recorded Payers Encounter Date Sequence Insurance Name Policy Number Policy Blanco Covered Member ID Blanco Member ID Guarantor Name 05/02/2024 1 [place] COST [id number] Chepe Allred [id number] Chepe Allred Notes Date Note Type Note Provider Name and Address Organization Details Recorded Time 05/02/2024 text/html HPI Notes: 73 yo male [...] (06/01/22) - 1.6 (02/29/24) Avery Gamez MD [address] [place] [address],[facility] [address], [place], [address], [facility] 05/02/2024 09:58:37
--- OUTSIDE RECORDS SUMMARY | 2024-05-15 05:55 | XMS_ITS | Continuity of Care Document ---
Author Organization [facility], [facility] Address [address] [place] [address] Care Team Providers Care Senior Marketing Engineer Name Role Phone [place] Primary Care Provider Assessment No assessment recorded. Plan of Treatment Reminders Order Date Submit Date Provider Last Modified By Organization Details Last Modified Time Details Appointments PSA 10 2023 01:20P M [facility] Not available Not available Not available ESTABLISH ED 10 2023 01:40P M Avery Gamez MD Not available Not available Not available Lab None recorded. Referral None recorded. Procedures cystoscop y (PROC) 2023 024 salmejere Not available 03/05/2024 16:51:39 Surgeries None recorded. Imaging None recorded. Medication Orders None recorded. Patient TargetsNo targets recorded. Patient Instructions Encounter Date Encounter Id Patient Instructions Last Modified By Organization Details Last Modified Time 03/02/2024 [id number] Telephone - 3 minutes Not available 03/02/2024 12:55:29 Reason for Referral None Reported. Procedures Surgical History Date Name Laterality Status Provider Name and Address Organization Details Recorded Time 4 Bladder Scan completed Gómez Hallal-Maria C srinivaso blane [facility] 05/02/2024 09:30:44 4 Cystoscopy- male completed Avery Gamez MD [address], [place], [address], [facility] 03/19/2024 18:37:32 4 Keflex post Cysto completed Gómez Hallal-Maria C srinivaso blane [facility] 03/09/2024 14:18:32 4 UroCuff completed Brigida arguelles, [facility] 03/01/2024 15:19:08 4 Bladder Scan completed Brigida arguelles, [facility] 03/01/2024 15:17:35 4 SOFTWARE DESIGN ENGINEER/blood draw completed Lucia arguelles, [facility] 02/29/2024 15:02:21 4 Bladder Scan completed Lucia arguelles, [facility] 02/29/2024 15:02:17 3 Bladder Scan completed Avery Gamez MD [address], [place], [address], [facility] 06/29/2023 15:56:16 3 Urinalysis completed Evonne arguelles [facility] 06/03/2023 14:30:33 3 [facility]23 14:28:26 3 Bladder Scan completed Avery Gamez MD [address], [place], [address], [facility] 02/23/2023 14:50:29 Imaging Results None recorded. Procedure [...] Updated DateTime 03/02/2024 162.56 cm 26.9 kg/m2 74575 g Lucia Jackson [facility] 03/02/2024 12:32:11 Social History Question Answer Notes LastModified by Organizat ion Details LastModified Time Tobacco Smoking Status Never Smoker Tony arguelles [facility] 06/09/2022 14:17:17 What Is Your Level [...] or 25mcg/0.25 mL dose 02/27/2023 completed Reina arguelles, [facility] 10/18/2023 12:38:59 Influenza, adjuvanted, quadrivalent, PF 07/31/2023 [facility] 02/29/2024 15:01:07 COVID-19, mRNA, LNP-S, PF, 50 mcg/0.5 mL 02/02/2024 [facility] 02/29/2024 15:01:07 COVID-19, mRNA, LNP-S, PF, 50 mcg/0.5 mL 07/31/2023 completed Lucia arguelles, [facility] 02/29/2024 15:01:07 Tdap 02/17/2024 [facility] 02/29/2024 15:01:07 pneumococcal polysaccharide PPV23 09/27/2016 completed Avery Gamez MD [address] [place] [address], [address], [facility] 02/23/2023 14:48:02 Pneumococcal conjugate PCV 13 08/27/2015 completed Avery Gamez MD [address], [address], [facility] 02/23/2023 14:48:02 zoster recombinant 03/17/2019 completed Qing reyes null, [facility] 07/06/2023 12:47:54 Influenza, adjuvanted, quadrivalent, PF 07/07/2022 completed Qing Mariees null, [facility] 07/06/2023 12:47:54 Influenza, adjuvanted, quadrivalent, PF 07/25/2021 [facility] 12:47:54 COVID-19, mRNA, LNP-S, PF, 100 mcg/0.5mL dose or 50 mcg/0.25mL dose 02/01/2022 [facility] 07/[facility]/2023 12:47:54 COVID-19, mRNA, LNP-S, PF, 30 mcg/0.3 mL dose 12/27/2020 [facility]23 12:47:54 COVID-19, mRNA, LNP-S, PF, 30 mcg/0.3 mL dose 01/17/2021 [facility]23 12:47:55 COVID-19, mRNA, LNP-S, PF, 30 mcg/0.3 mL dose 07/25/2021 [facility]23 12:47:55 COVID-19, mRNA, LNP-S, bivalent, PF, 50 mcg/0.5 mL or 25mcg/0.25 mL dose 07/07/2022 completed Qing Mesa null, [facility] 07/06/2023 12:47:55 Tdap 09/19/2013 [facility]2023 12:47:55 zoster live 07/11/2017 completed Qing Mesa null, [facility] 07/06/2023 12:47:55 Influenza, high-dose, trivalent, PF 08/02/2018 completed Qing Mariees null, [facility] 07/06/2023 12:47:55 Influenza, high-dose, trivalent, PF 08/08/2019 [facility] 12:47:55 Influenza, high-dose, trivalent, PF 08/11/2017 completed Qing arguelles, [facility] 07/06/2023 12:47:55 Influenza, high-dose, trivalent, PF 08/20/2016 completed Qing arguelles, [facility] 07/06/2023 12:47:55 Influenza, high-dose, trivalent, PF 08/27/2015 completed Qing arguelles, [facility] 07/06/2023 12:47:55 Influenza, split virus, trivalent, preservative 08/15/2013 completed Qing Mesa null, [facility] 07/06/2023 12:47:55 Influenza, split virus, trivalent, preservative 08/31/2010 completed Qing arguelles, [facility] 07/06/2023 12:47:55 Influenza, split virus, trivalent, preservative 09/08/2012 [facility]/06/2023 12:47:55 Influenza, split virus, trivalent, PF 2011 [facility] 07/06/2023 12:47:55 Influenza, split virus, trivalent, PF 09/22/2009 [facility] 07/06/2023 12:47:55 Td (adult), 2 Lf tetanus toxoid, preservative free, adsorbed 01/17/2004 [facility] 07/06/2023 12:47:55 Influenza, split virus, quadrivalent, PF 07/27/2014 [facility] 07/06/2023 12:47:55 Past Encounters Encounter ID Performer Location Encounter Start Date Encounter Closed Date Diagnosis/Indication Diagnosis SNOMED-CT Code [id number] MD MARIANNE Benedict_Sergio [address] [id number] 02/29/2024 14:37:04 03/01/2024 08:15:25 Benign prostatic hyperplasia with outflow obstruction 342766143 Increased frequency of urination [id number] Brigida LOPES_Sergio [address] [place] [id number] 03/01/2024 11:37:35 03/02/2024 11:28:35 Benign prostatic hyperplasia with outflow obstruction [id number] Daniela Bermudez [facility] [address] [place] [id number] 03/02/2024 12:31:40 03/05/2024 13:37:19 Benign prostatic hyperplasia with outflow obstruction 185085599 Increased frequency of urination 030473516 Health Concerns Section Related Observation LastModified by Organization Detai ls LastModified Time None Recorded Concern Status LastModified by Organization Details LastModified Time None Recorded Payers Encounter Date Sequence Insurance Name Policy Number Policy Blanco Covered Member ID Blanco Member ID Guarantor Name 03/02/2024 1 [place] MEDIC[place] COST [id number] Chepe Allred [id number] Chepe Allred Notes Date Note Type Note Provider Name and Address Organization Details Recorded Time 03/02/2024 text/html HPI Notes: 73 yo male [...] and coordinate their care. Avery Gamez MD [address] [place], [place] [address] [address], [place], [address], [facility] 03/02/2024 15:00:50
--- OUTSIDE RECORDS SUMMARY | 2024-05-15 05:55 | XMS_ITS | Continuity of Care Document ---
Author Organization [facility], [facility] Address [address] [place] [address] Care Team Providers Care Emergency Service Worker Name Role Phone SIMINJAYLEN LAKE Primary Care Provider Assessment No assessment recorded. Plan of Treatment Reminders Order Date Submit Date Provider Last Modified By Organization Details Last Modified Time Details Appointments PSA 10 2023 01:20P M [facility] Not available Not available Not available ESTABLISH ED 10 2023 01:40P M Avery Gamez MD Not available Not available Not available Lab urinalysi s, dipstick 2023 024 [facility], [address], [place], [address], 03/20/2024 12:16:21 Referral None recorded. Procedures None recorded. Surgeries cystouret hroscopy, with calibrati on and/or dilation of urethral stricture or stenosis (SURG) 2023 024 [email or web address] Not available 04/04/2024 10:18:16 Imaging None recorded. Medication Orders None recorded. Patient TargetsNo targets recorded. Patient InstructionsNo instructions recorded. Reason for Referral None Reported. Results Created Date Observation Date Name Description Value Unit Range Abnormal Flag LastModifiedBy Organization Detail LastModifiedTime 03/19/2003/19/2024 urina lysis , dipst ick BLOOD Negati ve Not Available [facility] [address], [place], [address], 03/09/2024 14:18:54 03/19/2003/19/2024 urina lysis , dipst ick BILIRUBIN Negati ve Not Available [facility] [address], [place], [address], 03/09/2024 14:18:54 03/19/20 24 03/19/2024 urina lysis , dipst ick UROBILINOGEN 0.2 mg/dL (Norm) Not Available [facility] [address], [place], [address], 03/09/2024 14:18:54 03/19/20 24 03/19/2024 urina lysis , dipst ick KETONES Negati ve Not Available [facility] [address], [place], [address], 03/09/2024 14:18:54 03/19/20 24 03/19/2024 urina lysis , dipst ick PROTEIN Negati ve Not Available [facility] [address], [place], [address], 03/09/2024 14:18:54 03/19/20 24 03/19/2024 urina lysis , dipst ick NITRITES Negati ve Not Available [facility] [address], [place], [address], 03/09/2024 14:18:54 03/19/20 24 03/19/2024 urina lysis , dipst ick GLUCOSE Negati ve Not Available [facility] [address], [place], [address], 03/09/2024 14:18:54 03/19/20 24 03/19/2024 urina lysis , dipst ick p.H. 6.0 Not Available [facility] [address], [place], [address], 03/09/2024 14:18:54 03/19/20 24 03/19/2024 urina lysis , dipst ick S.G. (Specific [place]) 1.015 Not Available [facility] [address], [place], [address], 03/09/2024 14:18:54 03/19/20 24 03/19/2024 urina lysis , dipst ick LEUKOCYTES Negati ve Not Available [facility] [address], [place], [address], 03/09/2024 14:18:54 Result Notes None recorded. Procedures Surgical History Date Name Laterality Status Provider Name and Address Organization Details Recorded Time 4 Bladder Scan completed Gómez arguelles, [facility] 05/02/2024 09:30:44 4 Cystoscopy- male completed Avery Gamez MD [address] [place] [address],[address], [place], [address], [facility] 03/19/2024 18:37:32 4 Keflex post Cysto completed Gómez Lundy-Maria C cook null, [facility] 03/09/2024 14:18:32 4 UroCuff completed Brigida arguelles, [facility] 03/01/2024 15:19:08 4 Bladder Scan completed Brigida arguelles, [facility] 03/01/2024 15:17:35 4 ELECTRONIC SEMICONDUCTOR PROCESSOR/blood draw completed Lucia arguelles, [facility] 02/29/2024 15:02:21 4 Bladder Scan completed Lucia arguelles, [facility] 02/29/2024 15:02:17 3 Bladder Scan completed Avery Gamez MD [address] [facility],[address], [place], [address], [facility] 06/29/2023 15:56:16 3 Urinalysis completed Evonne arguelles, [facility] 06/03/2023 14:30:33 3 Bladder Scan completed Evonne Eri arguelles [facility] 06/03/2023 14:28:26 3 Bladder Scan completed Avery Gamez MD [address] [facility],[address], [place], [address], [facility] 02/23/2023 14:50:29 Imaging Results None recorded. Procedure [...] Updated DateTime 03/19/2024 162.56 cm 28 kg/m2 21531.56 g Gómez cook [facility] 03/19/2024 09:29:24 Social History Question Answer Notes LastModified by Organizat ion Details LastModified Time Tobacco Smoking Status Never Smoker Tony arguelles [facility] 06/09/2022 14:17:17 What Is Your Level [...] or 25mcg/0.25 mL dose 02/27/2023 completed Reina arguelles [facility] 10/18/2023 12:38:59 Influenza, adjuvanted, quadrivalent, PF 07/31/2023 completed Lucia Salgadoa null, [facility] 02/29/2024 15:01:07 COVID-19, mRNA, LNP-S, PF, 50 mcg/0.5 mL 02/02/2024 completed Lucia Salgadoa null, [facility] 02/29/2024 15:01:07 COVID-19, mRNA, LNP-S, PF, 50 mcg/0.5 mL 07/31/2023 completed Lucia Salgadoa null, [facility] 02/29/2024 15:01:07 Tdap 02/17/2024 completed Lucia Jackson null, [facility] 02/29/2024 15:01:07 pneumococcal polysaccharide PPV23 09/27/2016 completed Avery Gamez MD [address] [place] [address],[address], [address], [facility] 02/23/2023 14:48:02 Pneumococcal conjugate PCV 13 08/27/2015 completed Avery Gamez MD [address] [place] [address],[address], [place], [address], [facility] 02/23/2023 14:48:02 zoster recombinant 03/17/2019 [facility] 12:47:54 Influenza, adjuvanted, quadrivalent, PF 07/07/2022 completed Qing Mesa null, [facility] 07/06/2023 12:47:54 Influenza, adjuvanted, quadrivalent, PF 07/25/2021 completed Qing [place] null, [facility] 07/06/2023 12:47:54 COVID-19, mRNA, LNP-S, PF, 100 mcg/0.5mL dose or 50 mcg/0.25mL dose 02/01/2022 completed Qing [place] null, [facility] 07/06/2023 12:47:54 COVID-19, mRNA, LNP-S, PF, 30 mcg/0.3 mL dose 12/27/2020 [facility] 12:47:54 COVID-19, mRNA, LNP-S, PF, 30 mcg/0.3 mL dose 01/17/2021 completed Qing [place] null, [facility] 07/06/2023 12:47:55 COVID-19, mRNA, LNP-S, PF, 30 mcg/0.3 mL dose 07/25/2021 completed Qing Mesa null, [facility] 07/06/2023 12:47:55 COVID-19, mRNA, LNP-S, bivalent, PF, 50 mcg/0.5 mL or 25mcg/0.25 mL dose 07/07/2022 completed Qing Mesa null, [facility] 07/06/2023 12:47:55 Tdap 09/19/2013 completed Qing [place] null, [facility] 07/06/2023 12:47:55 zoster live 07/11/2017 completed Qing [place]a null, [facility] 07/06/2023 12:47:55 Influenza, high-dose, trivalent, PF 08/02/2018 completed Qing Mesa null, [facility] 07/06/2023 12:47:55 Influenza, high-dose, trivalent, PF 08/08/2019 completed Qing Mesa null, [facility] 07/06/2023 12:47:55 Influenza, high-dose, trivalent, PF 08/11/2017 completed Qing Mesa null, [facility] 07/06/2023 12:47:55 Influenza, high-dose, trivalent, PF 08/20/2016 completed Qing Mesa null, [facility] 07/06/2023 12:47:55 Influenza, high-dose, trivalent, PF 08/27/2015 completed Qing Mesa null, [facility] 07/06/2023 12:47:55 Influenza, split virus, trivalent, preservative 08/15/2013 completed Qing Mesa null, [facility] 07/06/2023 12:47:55 Influenza, split virus, trivalent, preservative 08/31/2010 completed Qing Mesa null, [facility] 07/06/2023 12:47:55 Influenza, split virus, trivalent, preservative 09/08/2012 completed Qing arguelles, [facility] 07/06/2023 12:47:55 Influenza, split virus, trivalent, PF 2011 completed Qing arguelles, [facility] 07/06/2023 12:47:55 Influenza, split virus, trivalent, PF 09/22/2009 completed Qing arguelles, [facility] 07/06/2023 12:47:55 Td (adult), 2 Lf tetanus toxoid, preservative free, adsorbed 01/17/2004 completed Qing arguelles, [facility] 07/06/2023 12:47:55 Influenza, split virus, quadrivalent, PF 07/27/2014 completed Qing arguelles [facility] 07/06/2023 12:47:55 Past Encounters Encounter ID Performer Location Encounter Start Date Encounter Closed Date Diagnosis/Indication Diagnosis SNOMED-CT Code [id number] MD MARIANNE [facility] [address] [place] [address] 02/29/2024 14:37:04 03/01/2024 08:15:25 Benign prostatic hyperplasia with outflow obstruction [id number] Increased frequency of urination [id number] Brigida Ball [facility] [address] [place] [address] 03/01/2024 11:37:35 03/02/2024 11:28:35 Benign prostatic hyperplasia with outflow obstruction [id number] Daniela Bermudez [facility] [address] [place] [address] 03/02/2024 12:31:40 03/05/2024 13:37:19 Benign prostatic hyperplasia with outflow obstruction [id number] Increased frequency of urination [id number] MD MARIANNE [facility] [address] [place] [address] 03/19/2024 09:04:04 03/20/2024 14:36:17 Benign prostatic hyperplasia with outflow obstruction [id number] Increased frequency of urination 701951566 Urethral stricture 49928 002 Health Concerns Section Related Observation LastModified by Organization Detai ls LastModified Time None Recorded Concern Status LastModified by Organization Details LastModified Time None Recorded Payers Encounter Date Sequence Insurance Name Policy Number Policy Blanco Covered Member ID Blanco Member ID Guarantor Name 03/19/2024 1 [employer] [employer] [place] MEDICARE COST [id number] Chepe Allred [id number] Chepe Allred Notes Date Note Type Note Provider Name and Address Organization Details Recorded Time 03/19/2024 text/html HPI Notes: 73 yo male [...] daily, and Gemtesa 75 gm daily. Urodynamics ([facility] - 08/23/18) revealed obstruction - voided 122 [...] 1-2 hours during the day and 3x/night. 03/19/24 - He presents for Cystoscopy to assess for prostatic regrowth. PSA - 1.64 (12/10/05) - 1.74 (09/09/08) - 1.96 (09/08/12) - 4.86 (05/05/17) - 1.27 (08/04/17) - 1.73 (03/06/19) - 0.63 (04/21/20) - 0.87 (05/21/21) - 1.03 (06/01/22) - 1.6 (02/29/24) Avery Gamez MD [address] [place] [address],[address], [place], [address], [facility] 03/19/2024 18:41:39
--- OUTSIDE RECORDS SUMMARY | 2024-05-15 05:55 | XMS_ITS | Data Portability ---
Author Organization [facility], [facility] Address [address] [place] [address] Care Team Providers Care Differential Specialist Name Role Phone TABATHA TAMEZ Primary Care Provider Assessment Encounter Date Assessment Date Assessment LastModified by Organization Details LastModified Time 12/21/2022 12/21/2022 Follow-up in 5 weeks with cardiac testing Not available 12/21/2022 12:28:12 02/01/2023 02/01/2023 Follow-up in 1 week Not available 02/01/2023 17:49:48 02/11/2023 02/11/2023 Follow-up in 1 year Not available 02/11/2023 16:14:13 Plan of Treatment Reminders Order Date Submit Date Provider Last Modified By Organization Details Last Modified Time Details Appointments None recorded. Lab lipids, total, serum 2022 023 [facility], [address], [place], [address], 3 22:00:36 CMP, serum or plasma 2022 023 [facility], [address], [place], [address], 3 22:00:[address] referral 2019 020 [facility], [address], [place], [address], 0 17:51:46 cardiologis t referral 2022 023 ZAINAB Karey Cox DO, [address], [place], [address], 3 12:29:16 Procedures None recorded. Surgeries None recorded. Imaging electrocard iogram 2022 023 [email or web address] In-Office Order, Internal Use Only DO Not Attach Compendium DO Not Attach Compendium, Do Not Delete/merge, [id number] 3 12:34:06 US, echocardiog jefferson, transthorac ic, complete, w/ color flow 2022 023 ZAINAB Not available 3 15:34:15 holter monitor 2022 023 [email or web address] Not available 3 17:40:55 electrocard iogram 2022 023 In-Office Order, Internal Use Only DO Not Attach Compendium DO Not Attach Compendium, Do Not Delete/merge, [id number] 3 17:50:21 Medication Orders cephalexin 500 mg capsule 2019 020 [facility] #[id number], [address], [place], [address], 3 13:32:09 lisinopril 10 mg tablet 2022 023 [facility], [address], [place], [place], [id number], 3 17:20:12 metoprolol succinate ER 25 mg tablet,exte nded release 24 hr 2022 023 [id number], [address] [place], [address], 3 16:05:59 Patient TargetsNo targets recorded. 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 Referral for I nfection of sebaceous cyst EVAL AND TREAT Referring Physician: Tabatha Tamez [facility], Encounter Date: 01/02/2020 Airplane Flight Attendant Referral for Ir regular heart beat EVAL AND TREAT Referring Physician: Tabatha Tamez [facility], Encounter Date: 11/22/2022 Results Created Date Observation Date Name Description Value Unit Range Abnormal Flag LastModifiedBy Organization Detail LastModifiedTime 11/23/1911/23/2022 COMPR EHENS ARTHUR METAB OLIC PANEL W/EGF R (14) glucose, random 88 mg/dL 70-100 Not Available [facility] [address], [place], [address], 11/23/2022 22:00:35 11/23/1911/23/2022 COMPR EHENS ARTHUR METAB OLIC PANEL W/EGF R (14) BUN 14 mg/dL 8-25 Not Available [facility] [address], [place], [address], 11/23/2022 22:00:35 11/23/19 23 11/23/2022 COMPR EHENS ARTHUR METAB OLIC PANEL W/EGF R (14) creatinine 0.8 mg/dL 0.6-1. 5 Not Available [facility] [address], [place], [address], 11/23/2022 22:00:35 11/23/19 23 11/23/2022 COMPR EHENS ARTHUR METAB OLIC PANEL W/EGF R (14) eGFR 120 mL/mi n/1.7 3m2 Not Available [facility] [address] [place], [address], 11/23/2022 22:00:35 11/23/19 23 11/23/2022 COMPR EHENS ARTHUR METAB OLIC PANEL W/EGF R (14) eGFR non- 99 mL/mi n/1.7 3m2 Not Available [facility] [address] [place] [place], [address], 11/23/2022 22:00:35 11/23/19 23 11/23/2022 COMPR EHENS ARTHUR METAB OLIC PANEL W/EGF R (14) BUN/creat ratio 18 ratio 10-28 Not Available [facility] [address] [place], [address], 11/23/2022 22:00:35 11/23/19 23 11/23/2022 COMPR EHENS ARTHUR METAB OLIC PANEL W/EGF R (14) bilirubin, total 1.0 mg/dL 0.2-1. 3 Not Available [facility] [address] [place], [address], 11/23/2022 22:00:35 11/23/19 23 11/23/2022 COMPR EHENS ARTHUR METAB OLIC PANEL W/EGF R (14) AST (SGOT) 39 U/L 17-59 Not Available [facility] [address] [place], [address], 11/23/2022 22:00:35 11/23/19 23 11/23/2022 COMPR EHENS ARTHUR METAB OLIC PANEL W/EGF R (14) ALT (SGPT) 31 U/L <50 Not Available [facility] [address] [place], [address], 11/23/2022 22:00:35 11/23/19 23 11/23/2022 COMPR EHENS ARTHUR METAB OLIC PANEL W/EGF R (14) alkaline phosphatase 73 U/L 40-129 Not Available [facility] [address] [place], [address], 11/23/2022 22:00:35 11/23/19 23 11/23/2022 COMPR EHENS ARTHUR METAB OLIC PANEL W/EGF R (14) calcium 10.3 mg/dL 8.3-10 .4 Not Available [facility] [address] [place], [address], 11/23/2022 22:00:35 11/23/19 23 11/23/2022 COMPR EHENS ARTHUR METAB OLIC PANEL W/EGF R (14) sodium 138 mmol/ L 135-14 5 Not Available [facility] [address] [place], [address], 11/23/2022 22:00:35 11/23/19 23 11/23/2022 COMPR EHENS ARTHUR METAB OLIC PANEL W/EGF R (14) potassium 4.5 mmol/ L 3.5-5. 2 Not Available [facility] [address] [place], [address], 11/23/2022 22:00:35 11/23/19 23 11/23/2022 COMPR EHENS ARTHUR METAB OLIC PANEL W/EGF R (14) chloride 106 mmol/ L 96-110 Not Available [facility] [address] [place], [address], 11/23/2022 22:00:35 11/23/19 23 11/23/2022 COMPR EHENS ARTHUR METAB OLIC PANEL W/EGF R (14) CO2 25 mmol/ L 22-30 Not Available [facility] [address] [place], [address], 11/23/2022 22:00:35 11/23/19 23 11/23/2022 COMPR EHENS ARTHUR METAB OLIC PANEL W/EGF R (14) total protein 6.4 g/dL 6.3-8. 2 Not Available [facility] [address] [place], [address], 11/23/2022 22:00:35 11/23/19 23 11/23/2022 COMPR EHENS ARTHUR METAB OLIC PANEL W/EGF R (14) albumin 4.1 g/dL 3.5-5. 0 Not Available [facility] [address] [place], [address], 11/23/2022 22:00:35 11/23/19 23 11/23/2022 COMPR EHENS ARTHUR METAB OLIC PANEL W/EGF R (14) globulin 2.3 g/dL 2.0-3. 7 Not Available [facility] [address] [place], [address], 11/23/2022 22:00:35 11/23/19 23 11/23/2022 COMPR EHENS ARTHUR METAB OLIC PANEL W/EGF R (14) albumin/glob ulin 1.8 ratio 1.0-2. 4 Not Available [facility] [address] [place], [address], 11/23/2022 22:00:35 11/23/19 23 11/23/2022 COMPR EHENS ARTHUR METAB OLIC PANEL W/EGF R (14) anion gap 6 mmol/ L 4-18 Not Available [facility] [address] [place], [address], 11/23/2022 22:00:35 11/23/19 23 11/23/2022 LIPID PANEL triglyceride 53 mg/dL <150 Not Available [facility] [address] [place], [address], 11/23/2022 22:00:36 11/23/19 23 11/23/2022 LIPID PANEL cholesterol 159 mg/dL <200 Not Available [facility] [address] [place], [address], 11/23/2022 22:00:36 11/23/19 23 11/23/2022 LIPID PANEL HDL direct 62 mg/dL >=40 Not Available [facility] [address] [place], [address], 11/23/2022 22:00:36 11/23/19 23 11/23/2022 LIPID PANEL LDL-calculat ed 86 mg/dL <=129 Not Available [facility] [address] [place], [address], 11/23/2022 22:00:36 11/23/19 23 11/23/2022 LIPID PANEL chol/HDL risk ratio 2.6 ratio <=4.9 Not Available [facility] [address] [place], [address], 11/23/2022 22:00:36 11/23/19 23 11/23/2022 LIPID PANEL LDL/HDL risk ratio 1.4 ratio >0.4 Not Available [facility] [address] [place], [address], 11/23/2022 22:00:36 11/23/19 23 11/23/2022 LIPID PANEL VLDL calculated 11 mg/dL <=29 Not Available [facility] [address], [place], [address], 11/23/2022 22:00:36 12/21/19 23 elect rocar diogr am No observ ation record ed. In-Office Order Internal Use Only DO Not Attach Compendium DO Not Attach Compendium, Do Not Delete/merge, [id number] 12/21/2022 12:27:23 12/24/19 23 12/21/2022 elect rocar diogr am No observ ation record ed. [email or web address] In-Office Order Internal Use Only DO Not Attach Compendium DO Not Attach Compendium, Do Not Delete/merge, [id number] 12/24/2022 15:12:54 01/04/20 23 12/30/2022 US, echoc ardio gram, trans thora cic, compl ete, w/ color flow No observ ation record ed. [email or web address] Not Available 01/03/2023 15:34:54 01/22/20 23 01/19/2023 jermain r monit or No observ ation record ed. [email or web address] Not Available 02/07/2023 17:56:12 02/02/20 23 elect rocar diogr am No observ ation record ed. In-Office Order Internal Use Only DO Not Attach Compendium DO Not Attach Compendium, Do Not Delete/merge, [id number] 02/01/2023 17:50:19 02/05/20 23 elect rocar diogr am No observ ation record ed. [email or web address] In-Office Order Internal Use Only DO Not Attach Compendium DO Not Attach Compendium, Do Not Delete/merge, [id number] 02/04/2023 12:15:04 Result Notes None recorded. Problems Name Status Onset Date Resolution Date Notes Provider Name and Address Organization Details Recorded Time Essential hypertension Active 01/02/20 20 Tabatha Tamez, NERI [address], [place], [address], [facility] 01/02/2020 17:31:02 Dyslipidemia Active 01/02/20 20 NERI Waller [address], [place], [address], [facility] 01/02/2020 17:31:10 Benign prostatic hyperplasia Active 01/02/20 20 NERI Waller [address], [place], [address], [facility] 01/02/2020 17:31:18 Problem Notes None recorded. Procedures Surgical History Date Name Laterality Status Provider Name and Address Organization Details Recorded Time 8 Colonoscopy completed Mary Eisenberg [facility], [facility] 01/05/2023 17:49:43 Joint Replacement completed Ginna Díaz [facility], [facility] 12/21/2022 11:58:55 Urologic Surgery completed Ginna Díaz null, [facility] 12/21/2022 11:58:55 Other Surgeries completed Ginna Díaz null, [facility] 02/01/2023 17:19:34 Knee Replacement completed Mandi Leon null, [facility] 01/02/2020 17:32:03 Imaging Results Imaging Date Name Status LastModified by Organization Details LastModified Time 12/21/2022 electrocardiogram completed In-Offi ce Order Internal Use Only DO Not Attach Compendium DO Not Attach Compendium, Do Not Delete/merge, [id number] 12/21/2022 12:27:23 12/21/2022 electrocardiogram completed [email or web address] In-Offi ce Order Internal Use Only DO Not Attach Compendium DO Not Attach Compendium, Do Not Delete/merge, [id number] 12/24/2022 15:12:54 12/30/2022 US, echocardiogram, transthoracic, complete, w/ color flow completed [email or web address] Information not available 01/03/2023 15:34:54 01/19/2023 holter monitor completed Informatio n not available 02/07/2023 17:56:12 02/01/2023 electrocardiogram completed In-Offi ce Order Internal Use Only DO Not Attach Compendium DO Not Attach Compendium, Do Not Delete/merge, [id number] 02/01/2023 17:50:19 02/04/2023 electrocardiogram completed [email or web address] In-Off ice Order Internal Use Only DO Not Attach Compendium DO Not Attach Compendium, Do Not Delete/merge, [id number] 02/04/2023 12:15:04 Procedure Notes None recorded. Medical Equipment None Reported. Allergies No known drug allergies Medications Name Sig Start Date Stop Date Status Note LastModified by Organization Details LastModified Time atorvastati n 40 mg tablet TAKE 1 TABLET BY MOUTH AT BEDTIME 2022 active Not Available Not Available Not Avai lable atorvastati n 20 mg tablet 11/19 completed Not Available Not Available Not Available amlodipine 5 mg tablet TAKE 1 TABLET BY MOUTH EVERY DAY 2022 active Not Available Not Available Not Avai lable tamsulosin 0.4 mg capsule Take 1 capsule every day by oral route. 2022 active Not Available Not Available Not Avai lable amlodipine 10 mg tablet TAKE 1 TABLET BY MOUTH ONCE DAILY. 01/01 completed Not Available Not Available Not Available cephalexin 500 mg capsule TAKE 1 CAPSULE BY MOUTH TWICE A DAY FOR 10 DAYS 11/19 completed Not Available Not Available Not Available lisinopril 10 mg tablet Take 1 tablet every day by oral route. 2022 active Not Available Not Available Not Avai lable metoprolol succinate ER 25 mg tablet,exte nded release 24 hr TAKE 1 TABLET BY MOUTH EVERY DAY 02/11 completed Not Available Not Available Not Available ketoconazol e 2 % topical cream MASSAGE INTO FEET ONCE DAILY active Not Available Not Available No t Available finasteride 5 mg tablet active Not Available Not Available Not Available hydrochloro thiazide 12/21 completed Not Available Not Available Not Available No Aspirin active Not Available Not Av ailable Not Available Shingrix (PF) 50 mcg/0.5 mL intramuscul ar suspension, kit TO BE ADMINISTE RED BY [facility] T FOR IMMUNIZAT ION 01/01 completed Not Available Not Available Not Available Fluzone High-Dose 2019-20 (PF) 180 mcg/0.5 mL intramuscul ar syringe TO BE ADMINISTE RED BY [facility] T FOR IMMUNIZAT ION 01/01 completed Not Available Not Available Not Available Vitals Date Recorded Body height Body mass index (BMI) Body weight Heart rate Respiratory rate Oxygen saturation Oxygen saturation in Arterial blood by Pulse oximetry Systolic blood pressure Diastolic blood pressure Provider Name and Address Organization Details Last Updated DateTime 0 165.1 cm 30.5 kg/m2 58198.4 g 62 /min 18 /min 98 % 98 % 128 mm[Hg] 80 mm[Hg] Mandi Cervantes [facility] 0 17:23:57 Date Recorded Body height Body mass index (BMI) Body weight Heart rate Respiratory rate Oxygen saturation Oxygen saturation in Arterial blood by Pulse oximetry Systolic blood pressure Diastolic blood pressure Provider Name and Address Organization Details Last Updated DateTime 3 165.1 cm 29.6 kg/m2 10373.4 4 g 88 /min 18 /min 97 % 97 % 142 mm[Hg] 88 mm[Hg] Leola Montaño [facility] 3 09:13:33 Date Recorded Body height Body mass index (BMI) Body weight Heart rate Oxygen saturation Oxygen saturation in Arterial blood by Pulse oximetry Systolic blood pressure Diastolic blood pressure Systolic blood pressure Diastolic blood pressure Provider Name and Address Organization Details Last Updated DateTime 3 165.1 cm 28.8 kg/m2 46145.4 8 g 61 /min 96 % 96 % 162 mm[Hg] 80 mm[Hg] 142 mm[Hg] 70 mm[Hg] [facility] 3 12:13:35 Date Recorded Body height Body weight Body mass index (BMI) Heart rate Oxygen saturation Oxygen saturation in Arterial blood by Pulse oximetry Systolic blood pressure Diastolic blood pressure Systolic blood pressure Diastolic blood pressure Provider Name and Address Organization Details Last Updated DateTime 3 165.1 cm 55861.1 7 g 29 kg/m2 42 /min 99 % 99 % 140 mm[Hg] 70 mm[Hg] 126 mm[Hg] 60 mm[Hg] [facility] 17:32:57 Date Recorded Body height Body mass index (BMI) Body weight Heart rate Oxygen saturation Oxygen saturation in Arterial blood by Pulse oximetry Systolic blood pressure Diastolic blood pressure Systolic blood pressure Diastolic blood pressure Provider Name and Address Organization Details Last Updated DateTime 3 165.1 cm 28.4 kg/m2 53115.8 g 51 /min 99 % 99 % 150 mm[Hg] 80 mm[Hg] 142 mm[Hg] 76 mm[Hg] [facility] 3 16:05:49 Social History Question Answer Notes LastModified by Organizat ion Details LastModified Time Tobacco Smoking Status [facility] 17:27:33 Do You Have An Advance Directive? Yes Information n ot available 01/02/2020 What Is Your Level Of Alcohol Consumption? Occasional Information not available 01/02/2020 Are You Blind Or Do You Have Difficulty Seeing? No Information not available 12/21/2022 Is Blood Transfusion Acceptable In An Emergency? Yes Information not available 12/21/2022 What Is Your Level Of Caffeine Consumption? Occasional Information not available 01/02/2020 How Much Tobacco Do You Chew? None Information not available 01/02/2020 Are You Currently Employed? No Information not available 12/21/2022 Are You Deaf Or Do You Have Serious Difficulty Hearing? No Information not available 12/21/2022 What Type Of Diet Are You Following? REGULAR Information n ot available 01/02/2020 Which Illicit Or Recreational Drugs Have You Used? NO Information not available 01/02/2020 Do You Or Have You Ever Used E-cigarettes Or Vape? Never Used Electronic Cigarettes Information not available 01/02/2020 What Is Your Occupation? RETIRED Information not available 01/02/2020 Which Of Your Hands Is Dominant? Right Information not available 12/21/2022 Does The Patient Have Fever And Cough Or Shortness Of Breath AND In The Last 14 Days Has The Patient Come In Contact With Someone With Confirmed 2019-nCoV? No Information not available 01/02/2020 Does The Patient Have Fever And Cough Or Shortness Of Breath AND In The Last 14 Days Has The Patient Traveled From [facility], [place], [place], [place] Or [place]? No Information not available 01/02/2020 Does The Patient Have Fever And Lower Respiratory Illness Requiring Hospitalization Without An Underlying Diagnosis? No Information not available 01/02/2020 If Pulse Oximetry Was Done: Is The Patient's Sp02 Less Than 93% On Room Air? No [email or web address] Information not available 11/22/2022 Marital Status Single [email or web address] Informatio n not available 02/01/2023 What Was The Date Of Your Most Recent Tobacco Screening? 02/11/2023 Information n ot available 02/11/2023 Do You Have Any Pets? Yes Information not available 12/21/2022 What Is Your Relationship Status? Single Information not available 12/21/2022 Seat Belts Used Routinely Yes [email or web address] Information not available 02/01/2023 Smoke Alarm In Home Yes [email or web address] Infor mation not available 02/01/2023 Do You Or Have You Ever Used Smokeless Tobacco? Never Used Smokeless Tobacco Information not available 01/02/2020 Do You Feel Stressed (tense, Restless, Nervous, Or Anxious, Or Unable To Sleep At Night)? [id number] Information not available 12/21/2022 Do You Use Any Illicit Or Recreational Drugs? No Information not available 12/21/2022 Do You Use Sunscreen Routinely? Yes [email or web address] Information not available 02/01/2023 Do You Or Have You Ever Used Any Other Forms Of Tobacco Or Nicotine? No Information not available 12/21/2022 How Many Days In The Past Year Have You Consumed 5 Or More Drinks? 0 Information not available 12/21/2022 Sex: Unknown Functional Status Question Answer Note LastModified by Organization D etails LastModified Time Are you able to care for yourself? Yes Information not available 12/21/2022 What is your exercise level? Moderate Information not available 12/21/2022 Mental Status None recorded. Family History Relationship Description Onset Age of this Age Resolved Age Notes Father No current problems or disability STEPFATHER, Mother Parkinson's disease 83 Medical History Condition Response High Cholesterol (Hyperlipidemia) Y Overweight/Obesity Y High Blood Pressure (Hypertension) Y Hearing Loss Y Immunizations Vaccine Type Date Status Provider Name and Address Organization Details Recorded Time Influenza, split virus, quadrivalent, preservative 07/31/2019 [facility] 17:25:22 zoster, unspecified formulation 07/31/2019 [facility]/02[facility]2020 17:25:51 COVID-19, mRNA, LNP-S, PF, 30 mcg/0.3 mL dose 12/27/2020 mamta arguelles [facility] 01/05/2023 17:29:35 COVID-19, mRNA, LNP-S, PF, 30 mcg/0.3 mL dose 01/17/2021 mamta arguelles [facility] 01/05/2023 17:29:35 Past Encounters Encounter ID Performer Location Encounter Start Date Encounter Closed Date Diagnosis/Indication Diagnosis SNOMED-CT Code [id number] Tabatha Angelaillo, PHARMACY INFORMATICS MANAGER [facility] est [address] [place] [address] 01/02/2020 16:57:34 01/02/2020 17:51:46 Infection of sebaceous cyst 660394850 [id number] Tabatha Angelaillo, [facility] [address] [place] [address] 11/22/2022 08:48:28 11/22/2022 13:43:15 Overweight 701963862 Essential hypertension 96886957 Irregular heart beat 361 067853 Dyslipidemia 506993249 Benign pro static hyperplasia 861940095 [id number] Karey Cox, [facility] [address] [address] 12/21/2022 11:29:06 12/21/2022 12:34:06 Overweight 315700118 Irregular heart beat 361 073222 Hypertensive disorder 38 532040 Hyperlipidemia 26334934 [id number] Karey Cox, DO [facility] [address] [address] 02/01/2023 17:09:57 02/01/2023 17:46:57 Irregular heart beat 231228497 Hypertensive disorder 38 282005 Hyperlipidemia 57165784 Overweight 157716309 Atrial pre mature complex 113053952 [id number] Karey Cox, DO [facility] [address] [address] 02/11/2023 15:39:17 02/11/2023 16:11:34 Atrial premature complex 638719427 Irregular heart beat 361 788363 Hypertensive disorder 38 660890 Hyperlipidemia 50410382 Overweight 385234968 Health Concerns Section Related Observation LastModified by Organization Detai ls LastModified Time None Recorded Concern Status LastModified by Organization Details LastModified Time None Recorded Advance Directives Directive Y: Payers Encounter Date Sequence Insurance Name Policy Number Policy Blanco Covered Member ID Blanco Member ID Guarantor Name 01/02/2020 1 [place] [id number] Chepe Allred [id number] Chepe Allred 11/22/2022 1 [place] [id number] Chepe Allred [id number] Chepe Brigida 11/22/2022 1 [place] Chepe Allred [id number] Chepe Allred 12/21/2022 2 [place] [id number] Chepe Brigida [id number] Chepe Brigida 02/01/2023 1 [place] Chepe Lezama Brigida [id number] Chepe Brigida 02/11/2023 2 [place] [id number] Chepe Brigida [id number] Chepe Allred 02/11/2023 1 [place] Chepe Lezama Brigida [id number] Chepe Allred Notes Date Note Type Note Provider Name and Address Organization Details Recorded Time 01/02/2020 text/html HPI Notes: Jesse booth presents with c/o cyst on back that has become painful. Tabatha Tamez, PHARMACY INFORMATICS MANAGER [address], [place], [address], [facility] 01/02/2020 17:47:03 11/22/2022 text/html HPI Notes: Jesse booth has hypertension and is not goal per review of today's vitals. Repeat bp was not at goal Home readings are not at goal range Patient understand need for blood pressure monitoring at home and goals were reviewed. Patient is aware of symptoms and signs of low and high bp for which they will call office if occurs or go to the er for evaluation. BP at home ranging 120-150/80-90 States he can feel occasional tachycardia, denies chest pain. Unaware of family cardiac history. Tabatha Tamez, NERI [address], [place], [address], [facility] 11/22/2022 09:38:41 12/21/2022 text/html HPI Notes: 72-year-old male with hypertension and hyperlipidemia was referred for irregular heartbeat. Patient was taking his blood pressure measurements at home and his blood pressure monitor was informing him of an irregular heartbeat for the last month and a half. His pulse is usually in the 40s to 50s. He denies any palpitations, lightheadedness or dizziness. He is physically active with cardio and weights 3 times weekly without any concerning symptoms. He has never seen a film masker or had cardiac testing in the past. His systolic BP is well controlled 110? 130/60. He started lisinopril about 1 month ago. Karey Cox DO [address], [place], [address], [facility] 12/21/2022 12:28:28 02/01/2023 text/html HPI Notes: 72-year-old male with hypertension and hyperlipidemia presents to follow-up on irregular heartbeat. Since the last visit, he is feeling well. He denies any chest pain, shortness of breath, lower extremity edema. Cardiology procedure/surgery: TTE 12/2022: Normal left ventricle structure and function. Normal left ventricular wall thickness. Ejection fraction measured by Biplane method 65 %. Normal right ventricle structure and function. No significant valvular abnormalities. Holter monitor 12/2022: Sinus bradycardia to sinus rhythm with frequent PACs burden 17% Karey Cox DO [address], [place], [address], [facility] 02/01/2023 17:50:33 02/11/2023 text/html HPI Notes: 72-year-old male with hypertension and hyperlipidemia presents to follow-up on irregular heartbeat. Since the last visit, his heart rate was decreasing too much on the beta-odalis with heart rates in the 40s. He states that he was asymptomatic at that time. He denies any palpitations, chest pain or shortness of breath. Cardiology procedure/surgery: TTE 12/2022: Normal left ventricle structure and function. Normal left ventricular wall thickness. Ejection fraction measured by Biplane method 65 %. Normal right ventricle structure and function. No significant valvular abnormalities. Holter monitor 12/2022: Sinus bradycardia to sinus rhythm with frequent PACs burden 17% Karey Cox DO [address], [place], [address], [facility] 02/11/2023 16:14:27
--- OUTSIDE RECORDS SUMMARY | 2024-05-15 05:55 | XMS_ITS | Continuity of Care Document ---
Author Organization [facility], [facility] Address [address] [address] Care Team Providers Care Baby Sitter Name Role Phone SIMINJAYLEN LAKE Primary Care [...] Scan completed Gómez Stricklandrigal-Maria C ero blane, [facility] 05/02/2024 09:30:44 4 Cystoscopy- male completed Avery Gamez MD [address] [place] [address],[address], [place], [address], [facility] 03/19/2024 18:37:32 4 Keflex post Cysto completed Gómez Hallal-Maria C ero blane, [facility] 03/09/2024 14:18:32 4 UroCuff completed Brigida arguelles, [facility] 03/01/2024 15:19:08 4 Bladder Scan completed Brigida arguelles [facility] 03/01/2024 15:17:35 4 FUEL CELL SYSTEMS ENGINEER/blood draw completed Lucia arguelles [facility] 02/29/2024 15:02:21 4 Bladder Scan completed Lucia arguelles [facility] 02/29/2024 15:02:17 3 Bladder Scan completed Avery Gamez MD [address] [facility],[address], [place], [address], [facility] 06/29/2023 15:56:16 3 Urinalysis completed Evonne arguelles [facility] 06/03/2023 14:30:33 3 Bladder Scan completed Evonne arguelles [facility] 06/03/2023 14:28:26 3 Bladder Scan completed Avery Gamez MD [address] [facility],[address], [place], [address], [facility] 02/23/2023 14:50:29 Imaging Results [...] Updated DateTime 03/02/2024 162.56 cm 26.9 kg/m2 90455 g Lucia Jackson [facility] 03/02/2024 12:32:11 Social History Question Answer Notes LastModified by Organizat ion Details LastModified Time Tobacco Smoking Status Never Smoker Tony arguelles [facility] 06/09/2022 14:17:17 What Is Your Level [...] mL dose 02/27/2023 completed Reina Eric null, [facility] 10/18/2023 12:38:59 Influenza, adjuvanted, quadrivalent, PF 07/31/2023 [facility] 15:01:07 COVID-19, mRNA, LNP-S, PF, 50 mcg/0.5 mL 02/02/2024 [facility] 02/29/2024 15:01:07 COVID-19, mRNA, LNP-S, PF, 50 mcg/0.5 mL 07/31/2023 [facility] 02/29/2024 15:01:07 Tdap 02/17/2024 [facility] 02/29/2024 15:01:07 pneumococcal polysaccharide PPV23 09/27/2016 completed Avery Gamez MD [address] [place] [address],[address], [address], [facility] 02/23/2023 14:48:02 Pneumococcal conjugate PCV 13 08/27/2015 completed Avery Gamez MD [address] [place] [address],[address], [address], [facility] 02/23/2023 14:48:02 zoster recombinant 03/17/2019 [facility]23 12:47:54 Influenza, adjuvanted, quadrivalent, PF 07/07/2022 [facility]/2023 12:47:54 Influenza, adjuvanted, quadrivalent, PF 07/25/2021 completed Qing Mesa null, [facility] 07/06/2023 12:47:54 COVID-19, mRNA, LNP-S, PF, 100 mcg/0.5mL dose or 50 mcg/0.25mL dose 02/01/2022 completed Qing Mesa null, [facility] 07/06/2023 12:47:54 COVID-19, mRNA, LNP-S, PF, 30 mcg/0.3 mL dose 12/27/2020 completed Qing Mesa null, [facility] 07/06/2023 12:47:54 COVID-19, mRNA, LNP-S, PF, 30 mcg/0.3 mL dose 01/17/2021 completed Qing Mesa null, [facility] 07/06/2023 12:47:55 COVID-19, mRNA, LNP-S, PF, 30 mcg/0.3 mL dose 07/25/2021 completed Qing Mesa null, [facility] 07/06/2023 12:47:55 COVID-19, mRNA, LNP-S, bivalent, PF, 50 mcg/0.5 mL or 25mcg/0.25 mL dose 07/07/2022 completed Qing Mesa null, [facility] 07/06/2023 12:47:55 Tdap 09/19/2013 [facility] 12:47:55 zoster live 07/11/2017 completed Qing Mesa null, [facility] 07/06/2023 12:47:55 Influenza, high-dose, trivalent, PF 08/02/2018 completed Qing Mesa null, [facility] 07/06/2023 12:47:55 Influenza, high-dose, trivalent, PF 08/08/2019 completed Qing Mesa null, [facility] 07/06/2023 12:47:55 Influenza, high-dose, trivalent, PF 08/11/2017 completed Qing Mesa null, [facility] 07/06/2023 12:47:55 Influenza, high-dose, trivalent, PF 08/20/2016 completed Qing Mesa null, [facility] 07/06/2023 12:47:55 Influenza, high-dose, trivalent, PF 08/27/2015 completed Qing arguelles, [facility] 07/06/2023 12:47:55 Influenza, split virus, trivalent, preservative 08/15/2013 [facility] 12:47:55 Influenza, split virus, trivalent, preservative 08/31/2010 completed Qing arguelles, [facility] 07/06/2023 12:47:55 Influenza, split virus, trivalent, preservative 09/08/2012 [facility]2023 12:47:55 Influenza, split virus, trivalent, PF 2011 [facility]/06/2023 12:47:55 Influenza, split virus, trivalent, PF 09/22/2009 [facility] 07/06/2023 12:47:55 Td (adult), 2 Lf tetanus toxoid, preservative free, adsorbed 01/17/2004 [facility] 07/06/2023 12:47:55 Influenza, split virus, quadrivalent, PF 07/27/2014 [facility] 07/06/2023 12:47:55 Past Encounters Encounter ID Performer Location Encounter Start Date Encounter Closed Date Diagnosis/Indication Diagnosis SNOMED-CT Code [id number] MD MARIANNE Benedict_Sergio [address] [place] [address] 02/29/2024 14:37:04 03/01/2024 08:15:25 Benign prostatic hyperplasia with outflow obstruction [id number] Increased frequency of urination [id number] Brigida LOPES_Sergio [address] [place] [address] 03/01/2024 11:37:35 03/02/2024 11:28:35 Benign prostatic hyperplasia with outflow obstruction [id number] Health Concerns Section Related Observation LastModified by Organization Detai ls LastModified Time None Recorded Concern Status LastModified by Organization Details LastModified Time None Recorded Payers Encounter Date Sequence Insurance Name Policy Number Policy Blanco Covered Member ID Blanco Member ID Guarantor Name 03/01/2024 1 [place]ICARE COST [id number] Chepe Allred [id number] Chepe Allred Notes Date Note Type Note [...] daily, and Gemtesa 75 gm daily. Urodynamics ([facility] - 08/23/18) revealed obstruction - [...] and coordinate their care. Avery Gamez MD [address] [place] [address],[address], [place], [address], [facility] 03/02/2024 15:00:50
--- OUTSIDE RECORDS SUMMARY | 2024-05-15 05:55 | XMS_ITS | Continuity of Care Document ---
Author Organization [facility], [facility] Address [address] [place] [address] Care Team Providers Care Water Quality Manager Name Role Phone [place] Primary [...] Lab PSA, serum or plasma 2023 024 0 [facility], [address], [place], [address], 02/29/2024 15:11:58 PSA, total, serum or plasma 2023 024 [id number] [facility], [address], [place], [address], 03/01/2024 09:38:28 Referral None recorded. Procedures electromy ography studies (EMG) of anal or urethral sphincter , other than needle (PROC) 2023 024 rebbert Not available 03/08/2024 07:51:52 complex cystometr ogram with voiding pressure studies (PROC) 2023 024 rebbert Not available 03/08/2024 07:51:52 complex uroflowme try (PROC) 2023 024 rebbert Not available 03/08/2024 07:51:52 Surgeries None recorded. Imaging None recorded. Medication Orders None recorded. Patient TargetsNo targets recorded. Patient InstructionsNo instructions recorded. Reason for Referral None Reported. Results Created Date Observation Date Name Description Value Unit Range Abnormal Flag LastModifiedBy Organization Detail LastModifiedTime 02/29/20 24 02/29/2024 PSA, serum or plasm a PSA 1.6ng/ mL 0-4.0 NG/mL Not Available [facility] [address], [place], [address], 02/29/2024 15:02:27 Result Notes None recorded. Procedures Surgical History Date Name Laterality Status Provider Name and Address Organization Details Recorded Time 4 Bladder Scan completed Gómez arguelles [facility] 05/02/2024 09:30:44 4 Cystoscopy- male completed Avery Gamez MD [address] [place] [address],[address] [place] [address], [address], [facility] 03/19/2024 18:37:32 4 Keflex post Cysto completed Gómez espinoo blane [facility] 03/09/2024 14:18:32 4 UroCuff completed Brigida arguelles [facility] 03/01/2024 15:19:08 4 Bladder Scan completed Brigida arguelles [facility] 03/01/2024 15:17:35 4 BOAT DOCK OPERATOR/blood draw completed Lucia arguelles [facility] 02/29/2024 15:02:21 4 Bladder Scan completed Lucia arguelles [facility] 02/29/2024 15:02:17 3 Bladder Scan completed Avery Gamez MD [address] [place] [address],[address], [place], [address], [facility] 06/29/2023 15:56:16 3 Urinalysis completed Evonne arguelles [facility] 06/03/2023 14:30:33 3 Bladder Scan completed Evonne Eri arguelles [facility] 06/03/2023 14:28:26 3 Bladder Scan completed Avery Gamez MD [address] [facility],[address], [place], [address], [facility] 02/23/2023 14:50:29 Imaging Results None recorded. [...] Updated DateTime 02/29/2024 162.56 cm 26.9 kg/m2 [address] [facility] 02/29/2024 15:00:59 Social History Question Answer Notes LastModified by Organizat ion Details LastModified Time Tobacco Smoking Status Never Smoker Tony arguelles [facility] 06/09/2022 14:17:17 What Is Your Level Of [...] 25mcg/0.25 mL dose 02/27/[address] [facility] 10/18/2023 12:38:59 Influenza, adjuvanted, quadrivalent, PF 07/31/2023 completed Lucia Salgadoa null, [facility] 02/29/2024 15:01:07 COVID-19, mRNA, LNP-S, PF, 50 mcg/0.5 mL 02/02/2024 completed Lucia Salgadoa null, [facility] 02/29/2024 15:01:07 COVID-19, mRNA, LNP-S, PF, 50 mcg/0.5 mL 07/31/2023 completed Lucia Salgadoa null, [facility] 02/29/2024 15:01:07 Tdap 02/17/2024 completed Lucia Salgadoa null, [facility] 02/29/2024 15:01:07 pneumococcal polysaccharide PPV23 09/27/2016 completed Avery Gamez MD [address] [place] [address],[address], [place], [address], [facility] 02/23/2023 14:48:02 Pneumococcal conjugate PCV 13 08/27/2015 completed Avery Gaemz MD [address] [place] [address],[address], [place], [address], [facility] 02/23/2023 14:48:02 zoster recombinant 03/17/2019 [facility] 12:47:54 Influenza, adjuvanted, quadrivalent, PF 07/07/2022 completed Qing Mesa null, [facility] 07/06/2023 12:47:54 Influenza, adjuvanted, quadrivalent, PF 07/25/2021 completed Qing Mesa null, [facility] 07/06/2023 12:47:54 COVID-19, mRNA, LNP-S, PF, 100 mcg/0.5mL dose or 50 mcg/0.25mL dose 02/01/2022 completed Qing Mesa null, [facility] 07/06/2023 12:47:54 COVID-19, mRNA, LNP-S, PF, 30 mcg/0.3 mL dose 12/27/2020 completed Qing Mesa null, [facility] 07/06/2023 12:47:54 COVID-19, mRNA, LNP-S, PF, 30 mcg/0.3 mL dose 01/17/2021 completed Qing Mesa null, [facility] 07/06/2023 12:47:55 COVID-19, mRNA, LNP-S, PF, 30 mcg/0.3 mL dose 07/25/2021 completed Qing Mesa null, [facility] 07/06/2023 12:47:55 COVID-19, mRNA, LNP-S, bivalent, PF, 50 mcg/0.5 mL or 25mcg/0.25 mL dose 07/07/2022 completed Qing Mesa null, [facility] 07/06/2023 12:47:55 Tdap 09/19/2013 completed Qing Mesa null, [facility] 07/06/2023 12:47:55 zoster live 07/11/2017 completed Qing Mesa null, [facility] 07/06/2023 12:47:55 Influenza, high-dose, trivalent, PF 08/02/2018 completed Qing Mesa null, [facility] 07/06/2023 12:47:55 Influenza, high-dose, trivalent, PF 08/08/2019 completed Qing Mesa null, [facility] 07/06/2023 12:47:55 Influenza, high-dose, trivalent, PF 08/11/2017 completed Qing Mesa null, [facility] 07/06/2023 12:47:55 Influenza, high-dose, trivalent, PF 08/20/2016 completed Qing Mesa null, [facility] 07/06/2023 12:47:55 Influenza, high-dose, trivalent, PF 08/27/2015 completed Qing Mesa null, [facility] 07/06/2023 12:47:55 Influenza, split virus, trivalent, preservative 08/15/2013 completed Qing Mesa null, [facility] 07/06/2023 12:47:55 Influenza, split virus, trivalent, preservative 08/31/2010 completed Qing Mesa null, [facility] 07/06/2023 12:47:55 Influenza, split virus, trivalent, preservative 09/08/[address] [facility] 07/06/2023 12:47:55 Influenza, split virus, trivalent, PF [address] [facility] 07/06/2023 12:47:55 Influenza, split virus, trivalent, PF 09/22/[address] [facility] 07/06/2023 12:47:55 Td (adult), 2 Lf tetanus toxoid, preservative free, adsorbed 01/17/[address] [facility] 07/06/2023 12:47:55 Influenza, split virus, quadrivalent, PF 07/27/[address] [facility] 07/06/2023 12:47:55 Past Encounters Encounter ID Performer Location Encounter Start Date Encounter Closed Date Diagnosis/Indication Diagnosis SNOMED-CT Code [id number] Avery Gamez MD [facility] [address] [place] [address] 02/29/2024 14:37:04 03/01/2024 08:15:25 Benign prostatic hyperplasia with outflow obstruction [id number] Increased frequency of urination [id number] Health Concerns Section Related Observation LastModified by Organization Detai ls LastModified Time None Recorded Concern Status LastModified by Organization Details LastModified Time None Recorded Payers Encounter Date Sequence Insurance Name Policy Number Policy Blanco Covered Member ID Blanco Member ID Guarantor Name 02/29/2024 1 [place] COST [id number] Chepe Allred [id number] Chepe Allred Notes Date Note Type Note [...] (06/01/22) - 1.6 (02/29/24) Avery Gamez MD [address] [facility],[address], [place], [address], [place] [facility] 02/29/2024 20:48:58
[2024-05-15 06:01] VITALS: BP 122/62; BP 142/75; BP 145/71; PULSE 65; PULSE 72; PULSE 75
[2024-05-15 06:32] LABS: Lactate* 2.3 mmol/L (0.5-1.9)
[2024-05-15 06:34] LABS: Basophils Absolute Auto 0.03 K/uL (0.00-0.30); Basophils Percent Auto 0.6 % (0.0-3.0); Eosinophils Absolute Auto 0.03 K/uL (0.00-0.50); Eosinophils Percent Auto 0.6 % (0.0-7.0); Hematocrit 42.4 % (37.0-53.0); Hemoglobin* 13.8 gm/dL (13.5-17.5); Immature Granulocytes Abs Auto 0.01 K/uL (0.00-0.30); Immature Granulocytes Pct Auto 0.2 %; Lymphocytes Absolute Auto 1.76 K/uL (0.90-2.90); Lymphocytes Percent Auto 34.2 % (20-44); Mean Corpuscular HGB Conc 33 gm/dL (32-36); Mean Corpuscular Hemoglobin 29 pg (26-34); Mean Corpuscular Volume 90 fL (80-100); Monocytes Percent Auto 9.3 % (0.0-11.0); Neutrophils Absolute Auto 2.83 K/uL (1.7-7.0); Neutrophils Percent Auto 55.1 % (42.0-72.0); Platelet Count* 204 K/uL (140-440); Red Blood Count 4.69 m/uL (4.30-5.90); White Blood Count* 5.14 K/uL (4.50-11.00)
[2024-05-15 06:46] LABS: Slide Review Reflex No
[2024-05-15 06:48] LABS: Albumin* 4.3 g/dL (3.3-5.0); Chloride* 106 mmol/L (96-114)
[2024-05-15 06:49] LABS: Sodium* 134 mmol/L (135-149)
[2024-05-15 06:51] LABS: Bilirubin Total* 1.2 mg/dL (0.1-1.5); Creatinine* 0.9 mg/dL (0.5-1.5); Est. Creatinine Clearance* 54.27; Estimated Glomerular Filt Rate 90 ml/min
[2024-05-15 06:52] LABS: Alanine Aminotransferase* 26 U/L (4-50); Alkaline Phosphatase* 68 U/L (40-150); Anion Gap 9 mEq/L (7-15); Aspartate Amino Transferase* 34 U/L (12-35); Blood Urea Nitrogen* 20 mg/dL (7-30); Carbon Dioxide* 19 mmol/L (20-32); Glucose* 114 mg/dL (60-115); Total Protein* 6.7 g/dL (6.0-8.3)
[2024-05-15 06:52] LABS: Troponin, Point-of-Care* 0.01 ng/ml (0.01-0.04)
[2024-05-15 06:53] LABS: Calcium* 10.5 mg/dL (8.4-10.6)
[2024-05-15 06:55] LABS: C Reactive Protein* < 0.5 mg/dL (0.5-1.0)
[2024-05-15 07:17] LABS: PCR FLU A Negative PCR FLU A (Negative); PCR FLU B Negative PCR FLU B (Negative); PCR RSV Negative PCR RSV (Negative); SARS PCR* Negative SARS-CoV-2 (Negative)
[2024-05-15 07:38] VITALS: BP 129/61; PULSE 68; RESP 14; O2SAT 96
[2024-05-15 07:53] VITALS: BP 111/76; PULSE 67; O2SAT 96
[2024-05-15 08:07] LABS: Appearance Urine Clear (Clear); Bilirubin Urine Negative (Negative); Blood Urine Negative (Negative); Color Urine Yellow (Yellow); Glucose Urine Negative (Negative); Ketones Urine Negative (Negative); Leukocyte Esterase Urine Negative (Negative); Nitrite Urine Negative (Negative); Protein Urine Negative (Negative); Specific Gravity Urine 1.015 (1.000-1.030); Urobilinogen Urine 0.2 (0.2-1.0); pH Urine 5.5 (5.0-8.5)
== END 2024-05-15 08:33 | disposition home or self-care (01) ==
PROVIDERS: Emergency Provider Family Medicine; PCP Family Medicine
DX: R42 Dizziness and giddiness (principal); I95.1 Orthostatic hypotension; E86.0 Dehydration
CPT/HCPCS: 36415; 80053; 81003; 83605; 84443; 84484; 85025; 86140; 87631; 93005; 99284